=== PATIENT | female | born 1955 | race Caucasian/White ===

== ENCOUNTER 2017-07-09 15:51 | Emergency (ER) | payer BC ==
[2017-07-09 16:10] VITALS: BP 143/71; PULSE 81; RESP 16; TEMP 97.5
[2017-07-09] MEDS ORDERED: Acetaminophen-Codeine 300-30mg TAB PO STA (16:42)
--- NOTE | 2017-07-09 17:19 | XR ---
EXAMINATION TYPE: XR humerus RT DATE OF EXAM: 07/09/2017 CLINICAL HISTORY: Fall with pain TECHNIQUE: Two views of the right humerus are obtained. COMPARISON: None. FINDINGS: There is a fracture of the proximal aspect of the humerus which is difficult to precisely d elineate. It could be a fracture of the greater tuberosity. It is minimally displaced. No radiopaque foreign body is seen. IMPRESSION: Minimally displaced fracture of the proximal humerus difficult to precisely describe.
--- NOTE | 2017-07-09 17:37 | ED ---
General Adult HPI - General Chief complaint: Fall Stated complaint: right shoulder pain; left great toe pain Time Seen by Provider: 07/09/17 16:29 Source: patient, family, RN notes reviewed, old records reviewed Mode of arrival: wheelchair Limitations: no limitations - History of Present Illness Initial comments: Chief complaint history of present illness a 61-year-old female reports that she stumbled and fell outside a store. Landing on her right arm and shoulder area. Denies any head or neck injury or pain. Decreased range of motion secondary to pain to the right shoulder area. - Related Data Home Medications Medication Instructions Recorded Confirmed Etodolac [Lodine] 400 mg PO AC-SUPPER 07/09/17 07/09/17 Previous Rx's Medication Instructions Recorded Acetaminophen-Codeine 300-30mg 1 tab PO Q6H PRN #20 tablet 07/09/17 [Tylenol #3] Allergies Allergy/AdvReac Type Severity Reaction Status Date / Time Penicillins Allergy Rash/Hives Verified 07/09/17 16:34 morphine AdvReac Nausea & Verified 07/09/17 16:34 Vomiting Review of Systems ROS Statement: Those systems with pertinent positive or pertinent negative responses have been documented in the HPI. Review of systems no other complaints other than right shoulder pain. All systems are reviewed. Past medical problems significant for rheumatoid arthritis. Surgeries appendix and total hysterectomy. Family history cancers include breast stomach and colon. The patient does get routine colonoscopies. The patient has ALLERGIES to morphine and penicillin. She states she can't take Tylenol threes without problem. She does smoke she was strongly encouraged to stop. Denies alcohol use. ROS Other: All systems not noted in ROS Statement are negative. Past Medical History Past Medical History: Osteoarthritis (OA), Rheumatoid Arthritis (RA) History of Any Multi-Drug Resistant Organisms: None Reported Past Surgical History: Appendectomy, Hysterectomy Past Psychological History: No Psychological Hx Reported Smoking Status: Current every day smoker Past Alcohol Use History: None Reported Past Drug Use History: None Reported General Exam - General Exam Comments Initial Comments: General: The patient is awake and alert, complaining of pain right shoulder. Vital signs temperature 97.5 pulse 81 respiratory rate 16 pulse ox 95% room air blood pressure 143/71 Eye: Pupils are equal, round and reactive to light, extra-ocular movements are intact ; there is normal conjunctiva bilaterally. No signs of icterus. Ears, nose, mouth and throat: There are moist mucous membranes and no oral lesions. Neck: The neck is supple, there is no tenderness . Cardiovascular: There is a regular rate and rhythm. No murmur, rub or gallop is appreciated. Respiratory: Lungs are clear to auscultation, respirations are non-labored, breath sounds are equal. No wheezes, stridor, rales, or rhonchi. Gastrointestinal: Abdomen soft nontender. Back: There is no tenderness to palpation in the midline. There is no obvious deformity. No rashes noted. Musculoskeletal: All extremities examination normal except for pain and decreased range of motion to the right shoulder. Neurovascular status to hands intact. Able to open and close her fingers and right hand move her wrist pronate and supinate at the elbow. Difficulty comes with trying to both abduct or adduct active and passively to the proximal right shoulder. Collarbone intact. Neurological: No apparent neuro deficits. Limitations: no limitations Course Vital Signs 07/09/17 16:06 Temperature 97.5 F L Pulse Rate 81 Respiratory 16 Rate Blood Pressure 143/71 O2 Sat by Pulse 95 Oximetry Medical Decision Making - Medical Decision Making Medical decision making; to 61-year-old female here with . The patient reports that she was walking on a sidewalk outside a store stumbled and fell. Complaining of pain to the proximal right humerus. Patient denies any head or neck injury no other complaints. No loss of consciousness. X-ray of the right humerus was done and reviewed by radiologist his entire report includes there is a fracture of the proximal aspect of the humerus which is difficult to precisely delineate. He could be fracture of the greater tuberosity. It is minimally displaced. No radiopaque foreign body is seen. Impression minimally displaced fracture of the proximal humerus difficult to precisely describe. As read by Dr. Santiago Patient will have the arm placed in a sling to be placed on pain medication. She states she can take Tylenol threes without difficulty or complaints. She is to follow-up with family physician and on-call orthopedic surgeon [facility]. Disposition Clinical Impression: Fracture of proximal end of right humerus Disposition: HOME SELF-CARE Condition: Fair Instructions: Proximal Humerus Fracture (ED) Additional Instructions: Wear sling for comfort. Apply ice to area discomfort. Take Tylenol 3 for pain. Follow-up with family physician, your family orthopedic surgeon or he don 't have one follow-up with [facility]. Prescriptions: Acetaminophen-Codeine 300-30mg [Tylenol #3] 1 tab PO Q6H PRN #20 tablet PRN Reason: Pain Referrals: Isela Joseph MD [Primary Care Provider] - 1-2 days Cole Garces DO [Doctor of Osteopathic Medicine] - 1-2 days Time of Disposition: 17:37
== END 2017-07-09 17:52 | disposition home or self-care (01) ==
LOC: EC 15:51
DX: S42.401A Unspecified fracture of lower end of right humerus, initial encounter for closed fracture (principal); M06.9 Rheumatoid arthritis, unspecified; M19.90 Unspecified osteoarthritis, unspecified site; F17.200 Nicotine dependence, unspecified, uncomplicated; Z79.1 Long term (current) use of non-steroidal anti-inflammatories (NSAID); Z88.0 Allergy status to penicillin; Z88.5 Allergy status to narcotic agent; W01.0XXA Fall on same level from slipping, tripping and stumbling without subsequent striking against object, initial encounter; Y93.01 Activity, walking, marching and hiking; Y92.480 Sidewalk as the place of occurrence of the external cause
CPT/HCPCS: 99284

== ENCOUNTER → 2018-01-25 | Outpatient (CLI) | payer BC ==
--- NOTE | 2018-01-26 15:12 | MR ---
MR pelvis Left groin pain Multiplanar multisequence imaging through the pelvis. There is artifact present just superficial to the anterior abdominal wall in the left lower quadrant on all pulse sequences. There is no free fluid in the pelvis. Bone marrow signal is maintained. No evident hernia. No joint e ffusions. Sacroiliac joints are maintained. Uterus and adnexal structures are not seen with certainty . Urinary bladder is normal. IMPRESSION: Correlate for foreign body in the left lower quadrant, correlate for point tenderness. Pl ain film or CT scan may be of benefit. Postop changes.
== END | disposition home or self-care (01) ==
LOC: RADMRIMAIN 19:35
PROVIDERS: ATTEND Internal Medicine Rheumatology
DX: M54.16 Radiculopathy, lumbar region (principal); Z98.890 Other specified postprocedural states
CPT/HCPCS: 72195

== ENCOUNTER → 2018-02-06 | Outpatient (CLI) | payer BC ==
--- NOTE | 2018-02-06 07:57 | MR ---
EXAMINATION TYPE: MR lumbar spine wo con DATE OF EXAM: 02/06/2018 COMPARISON: MR pelvis dated 01/25/2019 HISTORY: Lumbar Radiculopathy TECHNIQUE: Multiplanar, multisequence images of the lumbar spine were acquired. FINDINGS: The lumbar spine vertebral bodies maintain normal vertebral body height and alignment. Ther e is multilevel disc desiccation seen. Conus medullaris is unremarkable terminating at T12-L1. Bone m arrow signal is within normal limits. L1-L2: Disc desiccation. No herniation, protrusion or disc bulging. No canal stenosis is present. F oramina are patent bilaterally. L2-L3: Disc desiccation. No herniation, protrusion or disc bulging. No canal stenosis is present. F oramina are patent bilaterally. L3-L4: There is a small broad-based disc bulge without focality. This creates very minimal bilateral neural foraminal narrowing. No spinal canal stenosis. L4-L5: There is a broad-based disc bulge, ligamentum flavum buckling and facet arthropathy resulting in minimal bilateral neuroforaminal narrowing. No spinal canal stenosis. L5-S1: There is a broad-based disc bulge without neural foraminal narrowing or spinal canal stenosis. IMPRESSION: 1. No evidence of vertebral body height loss or malalignment. 2. No focal disc herniation or spinal canal stenosis. 3. Mild multilevel degenerative disc disease resulting in minimal bilateral neural foraminal narrowin g at L3-L4 and L4-L5.
== END | disposition home or self-care (01) ==
LOC: RADMRIMAIN 06:45
PROVIDERS: ATTEND Internal Medicine Rheumatology
DX: M99.73 Connective tissue and disc stenosis of intervertebral foramina of lumbar region (principal); M51.36 Other intervertebral disc degeneration, lumbar region
CPT/HCPCS: 72148

== ENCOUNTER 2024-06-11 18:34 | Inpatient (IN) | payer BC ==
[2024-06-11] MEDS ORDERED: HEPARIN SODIUM 1,000 UN/ML (10ML VL) IV PRN (18:48)
[2024-06-11] MEDS: ASPIRIN 81 MG PO STA (18:50)
[2024-06-11] MEDS: ATORVASTATIN 80 MG TAB PO STA (18:51)
[2024-06-11] MEDS: methylPREDNISolone SOD SUCCI 125 MG/2 ML VIAL IV STA (18:51)
[2024-06-11] MEDS: HEPARIN SODIUM 1,000 UN/ML (10ML VL) IV ONE (18:53)
[2024-06-11] MEDS ORDERED: NALOXONE 0.4 MG/ML 1 ML VIAL IV PRN (18:55)
[2024-06-11] MEDS ORDERED: HEPARIN SOD,PORK IN 0.45% NACL 25,000 UNIT in 0.45% NACL 1 250ML.BAG IV SCH (19:00)
--- NOTE | 2024-06-11 19:01 | ED ---
General Adult HPI - General Chief complaint: Chest Pain Stated complaint: KARL Time Seen by Provider: 06/11/24 18:42 Source: EMS Mode of arrival: EMS Limitations: no limitations - History of Present Illness Initial comments: This patient is a 68-year-old woman who arrives by ambulance to have evaluation for dyspnea. The patient states that the symptoms started coming on last night. She has been getting progressively more short of breath. She states that it worsened markedly tonight and so they called EMS. The patient is not able to give much history due to severe dyspnea. She is having some associated nausea. Most of the history comes patient's . Patient has long smoking history. She is currently denying chest pain, diaphoresis, vomiting. Onset/Timin -: hour(s) Severity scale (1-10): 0 Consistency: constant Improves with: none Worsens with: none Associated Symptoms: nausea/vomiting, shortness of breath Treatments Prior to Arrival: other (Albuterol) - Related Data Home Medications Medication Instructions Recorded Confirmed Etodolac [Lodine] 400 mg PO BID PRN 07/09/17 06/11/24 Albuterol Nebulized [Ventolin 2.5 mg INHALATION RT-QID PRN 06/11/24 06/11/24 Nebulized] Allergies Allergy/AdvReac Type Severity Reaction Status Date / Time Iodinated Contrast Media Allergy Unknown Verified 06/11/24 18:59 Penicillins Allergy Rash/Hives Verified 06/11/24 18:48 morphine AdvReac Nausea & Verified 06/11/24 18:48 Vomiting Review of Systems ROS Statement: Those systems with pertinent positive or pertinent negative responses have been documented in the HPI. ROS Other: All systems not noted in ROS Statement are negative. Constitutional: Denies: fever Respiratory: Reports: dyspnea. Denies: cough, hemoptysis Cardiovascular: Reports: orthopnea. Denies: chest pain, palpitations, edema, syncope Gastrointestinal: Reports: nausea. Denies: abdominal pain, vomiting, diarrhea, melena, hematochezia Genitourinary: Denies: dysuria, hematuria Musculoskeletal: Denies: back pain Skin: Denies: rash Neurological: Denies: headache, weakness Past Medical History Past Medical History: Osteoarthritis (OA), Rheumatoid Arthritis (RA) History of Any Multi-Drug Resistant Organisms: None Reported Past Surgical History: Appendectomy, Hysterectomy Past Psychological History: No Psychological Hx Reported Smoking Status: Current every day smoker Past Alcohol Use History: None Reported Past Drug Use History: None Reported General Exam Limitations: no limitations General appearance: alert, in no apparent distress Head exam: Present: atraumatic, normocephalic Eye exam: Present: normal appearance. Absent: scleral icterus, conjunctival injection ENT exam: Present: mucous membranes dry Neck exam: Present: normal inspection Respiratory exam: Present: respiratory distress, wheezes. Absent: rales, rhonc hi, stridor, accessory muscle use Cardiovascular Exam: Present: regular rate, tachycardia, systolic murmur. Absent: diastolic murmur, rubs, gallop GI/Abdominal exam: Present: soft. Absent: distended, tenderness, guarding, rebound, rigid, mass Extremities exam: Present: normal inspection, normal capillary refill. Absent: pedal edema, calf tenderness Back exam: Present: normal inspection. Absent: CVA tenderness (R), CVA tenderness (L) Neurological exam: Present: alert Psychiatric exam: Present: anxious Skin exam: Present: warm, dry, intact, mottled. Absent: rash Course Vital Signs 06/11/24 06/11/24 06/11/24 18:44 18:54 19:00 Temperature 97.1 F L Pulse Rate 129 H 121 H 122 H Respiratory 20 20 30 H Rate Blood Pressure 128/89 102/73 O2 Sat by Pulse 99 98 Oximetry 06/11/24 19:12 Temperature Pulse Rate 119 H Respiratory 26 H Rate Blood Pressure 123/97 O2 Sat by Pulse 96 Oximetry EKG Findings - EKG Results: EKG: interpreted by ERMD, sinus rhythm EKG shows: tachycardia (Rate 129 bpm) - Blocks, [place], Hypertrophy, ST Abn: AV and intraventricular conduction: right bundle branch block (fi xed/intermittent, complete/incomplete) - PA, Pacemaker, Normal: Myocardial infarction: anterior PA (acute or recent) Medical Decision Making - Medical Decision Making The patient had chest x-ray that I interpreted as negative for acute infiltrate, pneumothorax, congestive heart failure. COPD changes present. Patient is a 68-year-old woman brought by ambulance to have evaluation of severe dyspnea. History from the patient is somewhat limited due to severe dyspnea. She is able to answer with just a couple of words. Her partner did give much of the history. The ECG is obtained and there are ST elevations and Glue Maker was activated. Case discussed with cardiology and they took the patient for heart catheterization. Was pt. sent in by a medical professional or institution (MALLORY Torrez, LEVEL VIAL INSPECTOR AND TESTER, urgent care, hospital, or assisted...) When possible be specific @ -[No] Did you speak to anyone other than the patient for history (EMS, parent, family, police, friend...)? What history was obtained from this source @ -[The patient's partner did give history as well as EMS. Did you review nursing and triage notes (agree or disagree)? Why? @ -[I reviewed and agree with nursing and triage notes] Were old charts reviewed (outside hosp., previous admission, EMS record, old EKG, old radiological studies, urgent care reports/EKG's, assisted records)? Report findings @ -[No old charts were reviewed] Differential Diagnosis (chest pain, altered mental status, abdominal pain women, abdominal pain men, vaginal bleeding, weakness, fever, dyspnea, syncope, headache, dizziness, GI bleed, back pain, seizure, CVA, palpatations, mental health, musculoskeletal)? @ -[Differential Dyspnea: Coronary syndrome, arrhythmia, tamponade, asthma, COPD, pulmonary embolism, pneumonia, pneumothorax, pulmonary effusion, anaphylaxis, diabetic ketoacidosis, flailed chest, pulmonary contusion, diaphragmatic rupture, anemia, neuromuscular, this is not meant to be an all-inclusive list. EKG interpreted by me (3pts min.). @ -[I interpreted as above] X-rays interpreted by me (1pt min.). @ -[I interpreted as above CT interpreted by me (1pt min.). @ -[None done] U/S interpreted by me (1pt. min.). @ -[None done] What testing was considered but not performed or refused? (CT, X-rays, U/S, labs)? Why? @ -[None] What meds were considered but not given or refused? Why? @ -[None] Did you discuss the management of the patient with other professionals (professionals i.e. MALLORY Torrez, LEVEL VIAL INSPECTOR AND TESTER, lab, RT, psych nurse, neonatal social worker, color laboratory technician, teacher, traffic division commanding officer, lining caser)? Give summary @ -[I discussed the patient's case with on-call cardiology and with the admitting physician and treatment recommendations are incorporated Was smoking cessation discussed for >3mins.? @ -[No] Was critical care preformed (if so, how long)? @ -[Yes, 35 minutes Were there social determinants of health that impacted care today? How? (Homelessness, low income, unemployed, alcoholism, drug addiction, transportation, low edu. Level, literacy, decrease access to med. care, [facility], rehab)? @ -[No] Was there de-escalation of care discussed even if they declined (Discuss DNR or withdrawal of care, Hospice)? DNR status @ -[No] What co-morbidities impacted this encounter? (DM, HTN, Smoking, COPD, CAD, Cancer, CVA, ARF, Chemo, Hep., AIDS, mental health diagnosis, sleep apnea, morbid obesity)? @ -Smoking Was patient admitted / discharged? Hospital course, mention meds given and route, prescriptions, significant lab abnormalities, going to OR and other pertinent info. @ -[See above Undiagnosed new problem with uncertain prognosis? @ -[No] Drug Therapy requiring intensive monitoring for toxicity (Heparin, Nitro, Insulin, Cardizem)? @ -[Heparin Were any procedures done? @ -[No] Diagnosis/symptom? @ -[Acute STEMI Acute, or Chronic, or Acute on Chronic? @ -[Acute Uncomplicated (without systemic symptoms) or Complicated (systemic symptoms)? @ -[Complicated by dyspnea Side effects of treatment? @ -[No] Exacerbation, Progression, or Severe Exacerbation? @ -[No] Poses a threat to life or bodily function? How? (Chest pain, [place], PA, pneumonia, PE, COPD, DKA, ARF, appy, cholecystitis, CVA, Diverticulitis, Homicidal, Suicidal, threat to staff... and all critical care pts) @ -[Yes All treatments are based on ideal body weight as in ED triage - Lab Data Result diagrams: 06/13/24 08:50 06/13/24 06:40 Disposition Clinical Impression: STEMI (ST elevation myocardial infarction) Disposition: ADMITTED IP TO THIS HOSP Condition: Critical Is patient prescribed a controlled substance at d/c from ED?: No
[2024-06-11 19:17] LABS: Basophils % (A) 0 %; Eosinophils % (A) 0 %; HCT 54.5 % (34.0-46.0); Lymphocytes # (A) 0.7 k/uL (1.0-4.8); Lymphocytes % (A) 6 %; MCH 31.8 pg (25.0-35.0); MCV 96.3 fL (80.0-100.0); Mean Platelet Volume 7.8; Monocytes % (A) 8 %; Neutrophils # (A) 11.4 k/uL (1.3-7.7); Neutrophils % (A) 86 %; Platelet Count 203 k/uL (150-450); RBC 5.66 m/uL (3.80-5.40); RDW 13.2 % (11.5-15.5); WBC 13.3 k/uL (3.8-10.6)
[2024-06-11] MEDS: SODIUM CHLORIDE 0.9% 1,000 ML IV ONE (19:19)
[2024-06-11 19:24] LABS: African American GFR (CKD) 36 (>60 ml/min/1.73 sqM); Albumin 5.2 g/dL (3.5-5.0); Anion Gap 21 mmol/L; Blood Urea Nitrogen 46 mg/dL (7-17); Calcium 9.9 mg/dL (8.4-10.2); Carbon Dioxide 20 mmol/L (22-30); Chloride 90 mmol/L (98-107); Glucose 216 mg/dL (74-99); Non-African American GFR(CKD) 31 (>60 ml/min/1.73 sqM); Sodium 131 mmol/L (137-145); Total Bilirubin 1.7 mg/dL (0.2-1.3); Total Protein 8.2 g/dL (6.3-8.2)
[2024-06-11 19:30] LABS: ALT 170 U/L (4-34)
--- NOTE | 2024-06-11 19:31 | P.CRDCN ---
History of Present Illness Consult date: 06/11/24 History of present illness: History of Present Illness: The patient is a 68-year-old female with known history of COPD, chronic tobacco use, 1 pack a day who on the weekend had symptoms of nausea vomiting and some diarrhea but starting yesterday became quite dyspneic getting worse today. Came into the emergency room and her EKG shows sinus mechanism with ST segment e levation in V3-V6. The patient has no associated chest discomfort. She has no prior cardiac history. She denies any peripheral edema, dizziness or palpitations. She is quite dyspneic and has a cough. She denies any fever. She denies any history of diabetes, hypertension or documented hyperlipidemia. Medications: Albuterol Review of Systems: Respiratory: She has a history of chronic tobacco use and chronic obstructive lung disease GI: She had recent episode of diarrhea and nausea : No hematuria or dysuria. Nervous System: No stroke or seizure. Physical Examination: 68-year-old female, appears older than stated age, dyspneic,Blood pressure 123/97, Heart rate 110 Head: Normocephalic. Eyes: Sclerae nonicteric. Neck: Good carotid upstroke, no bruit, no jugular venous distention. Lungs: Severe decrease in the air exchange with scattered wheezes Heart: Regular rate and rhythm, S1-S2, no S3, no rub. No murmur. Abdomen: Soft nontender, positive bowel sounds no organomegaly. Extremities: No edema, intact distal pulses. Labs: Hemoglobin of 18, WBC 13.3, platelets 203 EKG: Sinus mechanism with sinus tachycardia, right bundle branch block and ST segment elevation in V3 through V6 consistent with lateral wall myocardial infarction Impression: 1. Acute dyspnea with evidence of EKG changes consistent with acute ST segment elevation myocardial infarction 2. Probable exacerbation of COPD 3. Chronic tobacco use 4. Episode of diarrhea and nausea and vomiting on the weekend could be viral infection Plan: 1. Proceed with coronary angiography, the risks and the complications were discussed with the patient and her , they are in full understanding and agreement 2. Obtain an echocardiogram with Doppler 3. Smoking cessation 4. Pulmonary consultation 5. Depending on the results of her testing further recommendations will be made, thank you for this consult we will follow with you. Past Medical History Past Medical History: Osteoarthritis (OA), Rheumatoid Arthritis (RA) History of Any Multi-Drug Resistant Organisms: None Reported Past Surgical History: Appendectomy, Hysterectomy Past Psychological History: No Psychological Hx Reported Smoking Status: Current every day smoker Past Alcohol Use History: None Reported Past Drug Use History: None Reported Medications and Allergies Home Medications Medication Instructions Recorded Confirmed Type Etodolac [Lodine] 400 mg PO BID PRN 07/09/17 06/11/24 History Albuterol Nebulized [Ventolin 2.5 mg INHALATION RT-QID PRN 06/11/24 06/11/24 History Nebulized] Allergies Allergy/AdvReac Type Severity Reaction Status Date / Time Iodinated Contrast Media Allergy Unknown Verified 06/11/24 18:59 Penicillins Allergy Rash/Hives Verified 06/11/24 18:48 morphine AdvReac Nausea & Verified 06/11/24 18:48 Vomiting Physical Exam Vitals: Vital Signs Temp Pulse Resp BP Pulse Ox 06/11/24 19:12 119 H 26 H 123/97 96 06/11/24 19:00 122 H 30 H 102/73 98 06/11/24 18:54 121 H 20 128/89 99 06/11/24 18:44 97.1 F L 129 H 20 Intake and Output 06/11/24 06/11/24 06/11/24 06:59 14:59 22:59 Other: Weight 49.895 kg Results 06/11/24 18:57 CBC 06/11/24 Range/Units 18:57 WBC 13.3 H (3.8-10.6) k/uL RBC 5.66 H (3.80-5.40) m/uL Hgb 18.0 H (11.4-16.0) gm/dL Hct 54.5 H (34.0-46.0) % Plt Count 203 (150-450) k/uL Current Medications Generic Name Dose Route Start Last Admin Trade Name Freq PRN Reason Stop Dose Admin Heparin Sodium (Porcine) 0 unit 06/11/24 18:48 Heparin Sodium 1,000 Un/Ml (10ml Vl) IV PER PROTOCOL PRN Low PTT Protocol Heparin Sodium/Sodium Chloride 250 mls @ 5.987 mls/hr 06/11/24 19:00 25,000 unit/ Sodium Chloride IV .Q24H LJ Protocol 12 UNITS/KG/HR Naloxone HCl 0.2 mg 06/11/24 18:55 Naloxone 0.4 Mg/Ml 1 Ml Vial IV Q2M PRN Opioid Reversal Intake and Output 06/11/24 06/11/24 06/11/24 06:59 14:59 22:59 Other: Weight 49.895 kg Patient Weight 06/12/24 06:59 Weight 49.895 kg 06/11/24 18:57
[2024-06-11] MEDS: fentaNYL (PF) 50 MCG/ML 2 ML AMP IVP ONE (19:33)
[2024-06-11 19:37] LABS: AST 552 U/L (14-36); Alkaline Phosphatase 94 U/L (38-126); Magnesium 2.4 mg/dL (1.6-2.3); Potassium 5.6 mmol/L (3.5-5.1)
[2024-06-11] MEDS: LIDOCAINE 1% INJ 10MG/ML (20 ML MDV) SQ ONE (19:37)
[2024-06-11] MEDS: VERAPAMIL SYRINGE (5 MG/10 ML) INTRAARTER ONE (19:39)
[2024-06-11] MEDS: HEPARIN SODIUM 1,000 UN/ML (10ML VL) IVP ONE (19:42)
[2024-06-11 19:52] LABS: Influenza A Not Detected (Not Detectd); Influenza B Not Detected (Not Detectd); RSV Not Detected (Not Detectd)
[2024-06-11] MEDS: PRASUGREL 10 MG TAB PO ONE (19:54)
[2024-06-11] MEDS: IOPAMIDOL-370 100ML BTL INJ ONE ×3 (19:55→20:47)
--- NOTE | 2024-06-11 20:00 | XR ---
EXAMINATION TYPE: XR chest 1V DATE OF EXAM: 06/11/2024 7:01 PM COMPARISON: None. CLINICAL INDICATION: Female, 68 years old with history of STEMI, TECHNIQUE: XR chest 1V view(s) obtained. FINDINGS: The heart size is normal. The pulmonary vasculature is prominent. Small bilateral pleural effusions are present. IMPRESSION: 1. Small bilateral pleural effusions. 2. Prominent pulmonary vascular markings [facility], , 06/11/2024 7:58 PM
[2024-06-11 20:12] LABS: NT-Pro-B-Type Natriuretic Pept 59800 pg/mL
[2024-06-11] MEDS: HEPARIN SODIUM,PORCINE 10,000 UNIT in SODIUM CHLORIDE 0.9% 1,000 ML IRRIGATION ONE (20:19)
[2024-06-11] MEDS: HEPARIN SODIUM,PORCINE (1 ML) 2,500 UNIT in SODIUM CHLORIDE 0.9% 250 ML IRRIGATION ONE (20:19)
[2024-06-11] MEDS: MIDAZOLAM 2 MG/2 ML VIAL IVP ONE (20:19)
[2024-06-11] MEDS ORDERED: RX INFO: IV CONTRAST WAS GIVEN 1 EACH MISC MISCELLANE PRN (20:59)
--- NOTE | 2024-06-11 21:17 | P.CARDCATH ---
Date of Procedure: 06/11/24 Description of Procedure: Cardiac Catheterization: The patient is a 68-year-old female with known history of chronic tobacco use who presented with severe progressive dyspnea for few days and in the ER was noted to have ST elevation in the lateral precordial leads. The patient had no chest discomfort. Recommendations were made regarding cardiac catheterization, the risks and the complications were discussed with the patient who is in full understanding and agreement. After starting cardiac catheterization she was found to have evidence of chronic kidney disease in addition to significant elevation to her NT proBNP. Procedure Description: Patient was brought to laboratory equipment cleaner in fasting semi-sedated state after receiving Fentanyl and Benadryl achieiving moderate conscious sedated state. Using Xylocaine Anesthesia and modified Seldinger technique, a 6-Comoran sheath was introduced in the right radial artery . Subsequently, selective coronary angiography was performed using a 5-Comoran 3.5 bend right Hua and 6 Comoran CLS 3.5 guiding catheter. Multiple views of the coronary artery including hemiaxial views were obtained. The 5 [place]an pigtail catheter was used to cross the aortic valve and LVEDP was calculated. PCI: Using the CLS 3.5 guiding catheter attempt to advance a 0.014 BMW J-wire were unsuccessful to cross the total occlusion, that wire was removed and a whisper J-wire with a super cross catheter were used to cross the lesion subsequently the wire and the super cross were removed and a 0.014 BMW J-wire was advanced and appears to be in the lumen. A 1.0 x 8 mm sapphire balloon was advanced and multiple inflation up to 12 konrad were done but no distal flow was noted suggestive of chronic occlusion with inability to restore the flow. At that point the decision was made to stop. Following that, catheter and sheath were removed. Hemostasis was obtained with deployment of vascular band . There was no immediate complication. Patient was returned to room in stable condition. Of note, the patient received a total of 3000 units of intravenous heparin as well as intra-arterial verapamil. She is very received an oral loading dose of Effient, her ACT was monitored. She felt her breathing was better at the end of the procedure, she had no chest discomfort. Findings: Fluoroscopy: Calcification of the LAD was noted. Left main: This is a large size vessel, bifurcating into LAD and left circumflex, left main has no high grade stenosis LAD: This vessel gives rise to a proximal diagonal branch and after that the vessel is totally occluded with no antegrade flow Left circumflex: This is a large size vessel, bifurcating into 2 obtuse marginal branch. The proximal left circumflex has 80 to 90% stenosis and there is another 80% stenosis after the takeoff of the first obtuse marginal branch RCA: This is a dominant vessel that is subtotally occluded in the proximal segme nt. The vessel after the occlusion is very small in caliber, of less than 1 mm in caliber, bifurcating distally to PDA and PLV. Faint collateral from the left system toward the PDA is noted. Left Ventriculogram: Not performed Hemodynamics: There was no gradient across aortic valve, LVEDP was 20-25 mmHg Conclusion: 1. Calcified LAD 2. Total occlusion of the mid LAD 3. Severe stenosis in the left circumflex, proximal and mid 4. Subtotal occlusion of the proximal RCA with diffuse intimal disease in the distal vessel 5. Inability to restore flow into the LAD and spite of advancing a wire and PTCA, could represent a more chronic occlusion. Recommendations: The patient will continue on aspirin and Plavix, she will be started on low-dose beta-roney and statin, attempting to maintain LDL below 70 mg/dL. Smoking cessation was discussed with her and she will be referred to [place] quit line. She will be evaluated by the pulmonary service in regard to her severe lung disease. Depending on her progress and her echocardiogram further recommendations will be made. The findings and the recommendations were discussed with the patient and the family and they were in full understanding and agreement. The prognosis is guarded. Duration of sedation is 120 minutes.
[2024-06-11 21:18] LABS: Glucose,Whole Blood 148 mg/dL (70-110)
[2024-06-11] MEDS: SODIUM CHLORIDE 0.9% 1,000 ML IV SCH (21:34)
[2024-06-11] MEDS: ONDANSETRON 4 MG/2 ML VIAL IVP STA (21:36)
[2024-06-11] MEDS ORDERED: IPRATROPIUM-ALBUTEROL 3 ML NEB INHALATION PRN (22:33)
--- NOTE | 2024-06-11 23:12 | P.HPIM ---
History of Present Illness H&P Date: 06/11/24 Patient is a seen 8-year-old female with COPD, osteoarthritis, rheumatoid arthritis here for shortness of breath. She reported that on 06/09 she started to be short of breath that was nonpleuritic and constant despite using her albuterol inhaler and persisted at rest. She had associated sweats, nausea, multiple episodes of nonbloody nonbilious vomiting, urinary frequency and nonbloody nonbilious diarrhea. Yesterday 06/10, she noted that her shortness of breath became worse which led her to seek care. She denied cough, sore throat, fever, leg pain, leg swelling, recent travel, chest pain, palpitations, abdominal pain, loss of vision, changes in speech, focal weakness. She denies any recent illness or hospitalizations. She is an active smoker with a [id number] history. She is trying to quit but is having a hard time due to smoking exposure at home. She also smokes marijuana and takes edibles. On admission, chest x-ray showed small bilateral pleural effusions, with prominent pulmonary vascular markings. EKG showed sinus rhythm with a rate of [address] elevations in leads V1 to V6. Labs on admission showed WBC 13.3, hemoglobin 18, MCV 96, platelet count 202,000, sodium 131, potassium 5.6, chloride 90, bicarb 20, BUN 46, creatinine 1.7, glucose 216, magnesium 2.4, calcium 9.9. AST elevated at 552, ALT elevated at 170, total bilirubin 1.7 which is elevated, alk phos normal at 94, albumin 5.2. proBNP 59,900. Cepheid 4 negative Vitals on admission temperature 97.1, pulse rate 129, respiratory rate 20, blood pressure 128/89, O2 saturation 98% on 4 L nasal cannula ED documentation reviewed and case discussed with ED provider. Code STEMI was called and patient presented to [facility]. Heparin drip, Solu-Medrol IV 125 mg, aspirin high-dose p.o., and Lipitor 80 mg initiated. Review of systems: Pertinent positives and negatives as discussed in HPI, a complete review of systems was performed and all other systems are negative. Physical examination: Vital signs reviewed General: toxic, no distress, appears at older than stated age, on 3 L nasal cannula Derm: no unusual rashes/lesions, warm Head: atraumatic, normocephalic, symmetric Eyes: EOMI, anicteric sclera, pupils equal round reactive to light ENT: Nose and ears atraumatic Neck: No cervical lymphadenopathy, trachea midline, supple Mouth: no lip lesion, mucus membranes moist Cardiovascular: S1S2 reg, no murmur Lungs: Diffuse expiratory and inspiratory wheezing, no rhonchi, no rales, no accessory muscle use Abdominal: soft, nondistended, nontender to palpation, no guarding Ext: muscle strength 5 out of 5 in all 4 extremities grossly, no gross muscle atrophy, no contractures, positive dorsalis pedis pulse bilateral, no edema Neuro: CN II-XI grossly intact, no gross focal neuro deficits Psych: Alert and oriented x 3, appropriate affect and mood Assessment/Plan: 68-year-old female with COPD but no cardiac history here for shortness of breath. EKG was found to have STEMI in leads V1 to V6. She has COPD and is an active smoker and having difficulty quitting due smoking exposure at home. #. ST elevation HI status post cardiac catheterization -EKG showed sinus rhythm with a rate of [address] elevations in leads V1 to V6 -Cardiac monitoring -Supplemental oxygen as needed -Heart healthy diet -Trend troponin -EKG as needed -Echocardiogram -Continue with IV heparin -Continue with clopidogrel 75 mg p.o. daily -Nitroglycerin prn for chest pain. 0.4 mg PO or Nitrobid topical -Given aspirin 325 mg once in the ED -Continue with aspirin 81 mg daily -Continue lipitor 80 mg daily -Metoprolol tartarate 12.5mg PO twice daily -Cardiology following #. Shortness of breath, COPD exacerbation versus new onset heart failure -Patient is a long smoking history and is an active smoker. Has diffuse expiratory and inspiratory wheezing -Chest x-ray small bilateral pleural effusions and prominent pulmonary vascular markings -proBNP 59,800 -Sodium 131 -Supplemental oxygen as needed -DuoNeb inhaler every 4 hours and as needed -Symbicort inhaler twice daily -IV Solu-Medrol 40 mg daily -Echocardiogram -Repeat BMP tomorrow -Advised smoking cessation -Consult pulmonology -Cardiology following #. Leukocytosis likely reactive #. Elevated hemoglobin and hematocrit due to chronic hypoxia -WBC 13.3. Patient afebrile -Hemoglobin 18. Patient active smoker -Monitor CBC #. Transaminitis likely due to congestive hepatopathy -Total bilirubin 1.7 AST 0.52. ALT 170 -Monitor liver enzymes #. Acute kidney injury -BUN 46. Creatinine 1.7 -Continue with IVF 0.9 normal saline at 75 mL/h -Repeat BMP #. Hyperkalemia -Potassium 5.6. Specimen hemolyzed -Repeat BMP tomorrow #. Hypomagnesemia -Magnesium 2.4 -Recheck magnesium levels #. Hyperglycemia -Glucose 216 -History of diabetes -Check A1c -POC glucose checks ACHS Chronic Conditions: F: 0.9 normal saline 75 cc per E: Monitor sodium, potassium and magnesium N: Heart healthy diet A: Can self ambulate DVT ppx: Heparin drip GI ppx: Protonix 40 mg p.o. daily Dispo: The patient is admitted with an anticipated greater than 2 midnight stay for evaluation of STEMI CODE STATUS: Full Discussed with: Patient and family Anticipated discharge place: Home Sakina Moise MD PGY-1 IM Dictation was produced using [employer] dictation software. please excuse any grammatical, word or spelling errors. I have seen and evaluated the patient today. I Discussed the case with the resident and agree with the resident's findings I edited the assessment and plan as necessary as documented in the resident's note. Past Medical History Past Medical History: Osteoarthritis (OA), Rheumatoid Arthritis (RA) History of Any Multi-Drug Resistant Organisms: None Reported Past Surgical History: Appendectomy, Hysterectomy Past Psychological History: No Psychological Hx Reported Smoking Status: Current every day smoker Past Alcohol Use History: None Reported Past Drug Use History: None Reported Medications and Allergies Home Medications Medication Instructions Recorded Confirmed Type Etodolac [Lodine] 400 mg PO BID PRN 07/09/17 06/11/24 History Albuterol Nebulized [Ventolin 2.5 mg INHALATION RT-QID PRN 06/11/24 06/11/24 Hi story Nebulized] Allergies Allergy/AdvReac Type Severity Reaction Status Date / Time Iodinated Contrast Media Allergy Unknown Verified 06/11/24 18:59 Penicillins Allergy Rash/Hives Verified 06/11/24 18:48 morphine AdvReac Nausea & Verified 06/11/24 18:48 Vomiting Physical Exam Vitals: Vital Signs Temp Pulse Resp BP Pulse Ox 06/11/24 19:12 119 H 26 H 123/97 96 06/11/24 19:00 122 H 30 H 102/73 98 06/11/24 18:54 121 H 20 128/89 99 06/11/24 18:44 97.1 F L 129 H 20 Intake and Output 06/11/24 06/11/24 06/11/24 06:59 14:59 22:59 Other: Weight 49.895 kg Results CBC & Chem 7: 06/12/24 05:49 06/12/24 05:49 Labs: Abnormal Lab Results - Last 24 Hours (Table) 06/11/24 Range/Units 18:57 WBC 13.3 H (3.8-10.6) k/uL RBC 5.66 H (3.80-5.40) m/uL Hgb 18.0 H (11.4-16.0) gm/dL Hct 54.5 H (34.0-46.0) % Neutrophils # 11.4 H (1.3-7.7) k/uL Lymphocytes # 0.7 L (1.0-4.8) k/uL
[2024-06-11] MEDS: NITROGLYCERIN OINT 1 INCH/GM PACKET TOPICAL SCH (23:18)
[2024-06-11] MEDS: HEPARIN SOD,PORK IN 0.45% NACL 25,000 UNIT in 0.45% NACL 1 250ML.BAG IV SCH (23:18)
[2024-06-11] MEDS: FUROSEMIDE 10 MG/ML 2 ML VIAL IV STA (23:40)
[2024-06-11 23:50] LABS: Basophils % (A) 0 %; Eosinophils % (A) 0 %; HCT 50.6 % (34.0-46.0); HGB 16.3 gm/dL (11.4-16.0); Lymphocytes # (A) 0.5 k/uL (1.0-4.8); Lymphocytes % (A) 4 %; MCH 31.3 pg (25.0-35.0); MCHC 32.3 g/dL (31.0-37.0); MCV 96.8 fL (80.0-100.0); Mean Platelet Volume 7.3; Monocytes # (A) 0.7 k/uL (0-1.0); Monocytes % (A) 5 %; Neutrophils # (A) 13.4 k/uL (1.3-7.7); Neutrophils % (A) 91 %; Platelet Count 192 k/uL (150-450); RBC 5.23 m/uL (3.80-5.40); RDW 13.2 % (11.5-15.5); WBC 14.7 k/uL (3.8-10.6)
[2024-06-11 23:59] LABS: African American GFR (CKD) 36 (>60 ml/min/1.73 sqM); Anion Gap 16 mmol/L; Blood Urea Nitrogen 47 mg/dL (7-17); Calcium 9.4 mg/dL (8.4-10.2); Carbon Dioxide 25 mmol/L (22-30); Chloride 89 mmol/L (98-107); Glucose 175 mg/dL (74-99); INR 1.3 (<1.2); Non-African American GFR(CKD) 31 (>60 ml/min/1.73 sqM); Partial Thromboplastin Time 24.7 sec (22.0-30.0); Potassium 4.7 mmol/L (3.5-5.1); Prothrombin Time 13.7 sec (10.0-12.5); Sodium 130 mmol/L (137-145)
[2024-06-12] MEDS: FUROSEMIDE 10 MG/ML 2 ML VIAL IV ONE (00:31)
[2024-06-12] MEDS: fentaNYL (PF) 50 MCG/ML 2 ML AMP IVP STA (00:31)
--- NOTE | 2024-06-12 05:09 | P.CNPUL ---
History of Present Illness Consult date: 06/12/24 Requesting physician: Higinio Martinez Reason for consult: COPD Chief complaint: Shortness of breath History of present illness: Patient is 68-year-old female with past medical history significant for COPD and chronic ongoing tobacco dependence. Presented to the emergency department yesterday evening with a chief complaint of progressively worsening shortness of breath over the last 24-48 hours. Worsening overnight. Denies any overt chest pain. Denies any lower extremity edema. Associated nausea without emesis. No diaphoresis. EKG showing ST segment elevations in anterior leads. Patient was taken to the catheterization lab which noted a totally occluded mid LAD, severe stenosis of the left circumflex, and subtotal occlusion of the proximal RCA. Interventional cardiology unable to restore patency to the LAD. Following the heart catheterization, patient was sent to the intensive care unit. Continues to report severe ongoing shortness of breath. Chest x-ray from last night sh owing cardiomegaly, pulmonary vascular congestion, and small bilateral pleural effusions. Hyperinflation consistent with COPD. CBC: WBC count 14.7, hemoglobin 16.3, platelets 192. CMP: Sodium 130, potassium 4.7, chloride 89, serum bicarb 25, BUN 47, creatinine 1.69, glucose 175. NT proBNP 59,800. Troponin is peaked at 98. Viral screen unremarkable for influenza, RSV, COVID. Patient currently being evaluated in the ICU. Continues on IV heparin infusion per protocol. Normal sinus infusing at 75 mL/h. Patient denies any chest pain. Continues to report ongoing shortness of breath. A pulmonary consult was placed for COPD exacerbation. She is sitting erect in bed. On 4 L/min nasal ca nnula. SpO2 reading 97%. She is tachypneic. Does reportedly have history of COPD. Smokes 1 pack/day. Denies infectious-like symptoms. Denies coughing, sputum production, fever/chills. Did have few episodes of self-limiting loose stools outpatient. No her dyspnea more likely related to her pulmonary edema and ST segment elevation [place]. She has been started on Lasix 40 mg twice daily. Also, started on dual antiplatelet medications including aspirin and Plavix. Started on a low-dose beta-roney and high intensity statin. Most recent vital signs afebrile, heart rate 102 bpm, blood pressure 123/67 mmHg, respiratory rate in the mid 20s, SpO2 97% on 4 L/min nasal cannula. Review of Systems Constitutional: Reports fatigue, Denies chills, Denies fever, Denies poor appetite, Denies sweats, Denies weight gain, Denies weight loss Ears, nose, mouth and throat: Denies headache, Denies sore throat Cardiovascular: Reports dyspnea on exertion, Reports orthopnea, Reports shortness of breath, Denies chest pain, Denies leg edema, Denies lightheadedness, Denies palpitations, Denies paroxysmal nocturnal dyspnea, Denies syncope Respiratory: Reports dyspnea, Denies congestion, Denies cough, Denies excessive sputum, Denies home oxygen Gastrointestinal: Reports diarrhea, Denies abdominal pain, Denies hematemesis, Denies hematochezia, Denies melena, Denies nausea, Denies vomiting Genitourinary: Denies dysuria Musculoskeletal: Denies limitation of motion Integumentary: Denies rash Neurological: Denies seizures, Denies syncope Psychiatric: Denies anxiety, Denies depression Past Medical History Past Medical History: Osteoarthritis (OA), Rheumatoid Arthritis (RA) History of Any Multi-Drug Resistant Organisms: None Reported Past Surgical History: Appendectomy, Hysterectomy Past Psychological History: No Psychological Hx Reported Smoking Status: Current every day smoker Past Alcohol Use History: None Reported Past Drug Use History: None Reported Medications and Allergies Home Medications Medication Instructions Recorded Confirmed Type Etodolac [Lodine] 400 mg PO BID PRN 07/09/17 06/11/24 History Albuterol Nebulized [Ventolin 2.5 mg INHALATION RT-QID PRN 06/11/24 06/11/24 History Nebulized] Allergies Allergy/AdvReac Type Severity Reaction Status Date / Time Iodinated Contrast Media Allergy Unknown Verified 06/11/24 18:59 Penicillins Allergy Rash/Hives Verified 06/11/24 18:48 morphine AdvReac Nausea & Verified 06/11/24 18:48 Vomiting Physical Exam Vitals: Vital Signs Temp Pulse Resp BP Pulse Ox 06/12/24 01:00 102 H 22 123/67 97 06/12/24 00:30 107 H 22 100/47 97 06/12/24 00:00 105 H 28 H 114/75 97 06/11/24 23:30 111 H 22 122/50 97 06/11/24 23:06 109 H 18 122/50 95 06/11/24 23:00 109 H 30 H 107/67 95 06/11/24 22:45 113 H 20 116/80 97 06/11/24 22:30 28 H 113/92 96 06/11/24 22:15 123 H 22 107/86 96 06/11/24 22:00 112 H 20 122/44 96 06/11/24 21:45 121 H 20 118/97 96 06/11/24 21:30 122 H 24 122/86 96 06/11/24 19:12 119 H 26 H 123/97 96 06/11/24 19:00 122 H 30 H 102/73 98 06/11/24 18:54 121 H 20 128/89 99 06/11/24 18:44 97.1 F L 129 H 20 Intake and Output 06/11/24 06/11/24 06/12/24 14:59 22:59 06:59 Intake Total 425 150 Output Total 0 200 Balance 425 -50 Intake: IV 425 150 Sodium Chloride 0.9% 1, 75 150 000 ml @ 75 mls/hr IV . [id number] Rx#:[id number] Output: Urine 0 200 Other: Voiding Method External Catheter # Voids 1 Weight 49.895 kg GENERAL EXAM: Alert, 68-year-old white female, sitting erect in bed, on 4 L/min nasal cannula, and a mild amount of respiratory distress HEAD: Normocephalic and atraumatic EYES: Normal reaction of pupils, equal size. NOSE: Clear with pink turbinates. THROAT: No erythema or exudates. NECK: No masses, no JVD. CHEST: No chest wall deformity. LUNGS: Equal air entry with diminished bilateral lung sounds. Faint scattered expiratory wheezes. On 4 L/min nasal cannula. Conversational dyspnea noted speaking in 3-4 word phrases. No accessory muscle use. CVS: S1 and S2 distant with no audible murmur, regular rhythm. No extra heart sounds ABDOMEN: No hepatosplenomegaly, active bowel sounds, no guarding or rigidity. SPINE: No scoliosis or deformity SKIN: No rashes CENTRAL NERVOUS SYSTEM: No focal deficits, tone is normal in all 4 extremities. EXTREMITIES: There is no peripheral edema, clubbing, or cyanosis. Peripheral pulses are intact. Results - Laboratory Findings CBC and BMP: 06/11/24 23:21 06/11/24 23:21 PT/INR, D-dimer PT 13.7 sec (10.0-12.5) H 06/11/24 23:21 INR 1.3 (<1.2) H 06/11/24 23:21 D-Dimer 1.14 mg/L FEU (<0.60) H 06/11/24 23:21 Abnormal lab findings: Abnormal Labs 06/11/24 06/11/24 06/11/24 18:57 18:57 18:57 WBC 13.3 H RBC 5.66 H Hgb 18.0 H Hct 54.5 H Neutrophils # 11.4 H Lymphocytes # 0.7 L PT INR D-Dimer Sodium 131 L Potassium 5.6 H Chloride 90 L Carbon Dioxide 20 L BUN 46 H Creatinine 1.70 H Glucose 216 H POC Glucose (mg/dL) Magnesium 2.4 H Total Bilirubin 1.7 H AST 552 H ALT 170 H Troponin I 98.000 H* Albumin 5.2 H 06/11/24 06/11/24 06/11/24 21:17 23:21 23:21 WBC RBC Hgb Hct Neutrophils # Lymphocytes # PT 13.7 H INR 1.3 H D-Dimer 1.14 H Sodium 130 L Potassium Chloride 89 L Carbon Dioxide BUN 47 H Creatinine 1.69 H Glucose 175 H POC Glucose (mg/dL) 148 H Magnesium Total Bilirubin AST ALT Troponin I Albumin 06/11/24 23:21 WBC 14.7 H RBC Hgb 16.3 H Hct 50.6 H Neutrophils # 13.4 H Lymphocytes # 0.5 L PT INR D-Dimer Sodium Potassium Chloride Carbon Dioxide BUN Creatinine Glucose POC Glucose (mg/dL) Magnesium Total Bilirubin AST ALT Troponin I Albumin - Diagnostic Findings Chest x-ray: image reviewed Assessment and Plan Assessment: Acute ST segment elevation [place], heart catheterization noted a totally occluded mid LAD, severe stenosis of the left circumflex, and subtotal occlusion of the proximal RCA. Interventional cardiology unable to restore patency to the LAD. Acute pulmonary edema Possible acute COPD exacerbation; however, acute dyspnea more likely attributed to above Acute hypoxemic respiratory failure, currently on 4 L/min nasal cannula, chest x-ray showing cardiomegaly, pulmonary vascular congestion, and small bilateral pleural effusions. Hyperinflation consistent with COPD. Acute kidney injury, likely cardiorenal Transaminitis, likely secondary to congestion Prediabetes Multivessel coronary artery disease as described above Chronic ongoing tobacco dependence, reportedly 1 pack/day smoker History of rheumatoid arthritis Plan: Continue supplemental oxygen to maintain oxygen saturation of 92% or greater Continues on IV heparin per cardiology Give patient dose of Lasix 20 mg IV push once now and continuing Lasix 40 mg twice daily Echocardiogram scheduled for the morning Continues on dual antiplatelet medications including Plavix and aspirin, as well as low-dose beta-roney and high intensity statin Monitor renal function Continues on bronchodilators, Symbicort inhaler, and IV Solu-Medrol Viral screen negative for influenza A/B, RSV, COVID Smoking cessation counseling performed We will continue to follow I have personally seen and examined the patient, performed the documentation and the assessment and plan as written. Number of minutes spent on the visit:20 Time with Patient: Greater than 30
[2024-06-12 06:22] LABS: Basophils % (A) 0 %; Eosinophils % (A) 0 %; HCT 47.3 % (34.0-46.0); Lymphocytes # (A) 0.7 k/uL (1.0-4.8); Lymphocytes % (A) 5 %; MCH 30.4 pg (25.0-35.0); MCHC 31.7 g/dL (31.0-37.0); MCV 95.7 fL (80.0-100.0); Mean Platelet Volume 7.8; Monocytes # (A) 0.8 k/uL (0-1.0); Monocytes % (A) 5 %; Neutrophils # (A) 13.1 k/uL (1.3-7.7); Neutrophils % (A) 89 %; Platelet Count 170 k/uL (150-450); RBC 4.94 m/uL (3.80-5.40); RDW 13.1 % (11.5-15.5); WBC 14.7 k/uL (3.8-10.6)
[2024-06-12 06:36] LABS: INR 1.4 (<1.2); Prothrombin Time 14.6 sec (10.0-12.5)
[2024-06-12 06:45] LABS: ALT 207 U/L (4-34); AST 506 U/L (14-36); African American GFR (CKD) 41 (>60 ml/min/1.73 sqM); Albumin 4.1 g/dL (3.5-5.0); Alkaline Phosphatase 95 U/L (38-126); Anion Gap 12 mmol/L; Blood Urea Nitrogen 51 mg/dL (7-17); Carbon Dioxide 21 mmol/L (22-30); Chloride 95 mmol/L (98-107); Glucose 164 mg/dL (74-99); Magnesium 2.2 mg/dL (1.6-2.3); Non-African American GFR(CKD) 36 (>60 ml/min/1.73 sqM); Potassium 4.6 mmol/L (3.5-5.1); Sodium 128 mmol/L (137-145); Total Bilirubin 0.9 mg/dL (0.2-1.3); Total Protein 6.4 g/dL (6.3-8.2)
[2024-06-12] MEDS: HEPARIN SODIUM 1,000 UN/ML (10ML VL) IV PRN (07:42)
[2024-06-12] MEDS: PANTOPRAZOLE 40 MG TABLET PO SCH (07:43)
--- NOTE | 2024-06-12 07:50 | P.PN ---
Subjective Progress Note Date: 06/12/24 PROGRESS NOTE The patient is a 68-year-old female with history of chronic tobacco use who presented with symptoms of dyspnea going on for about 3 days and was found to have ST elevation on the lateral precordial leads. She had no chest discomfort. She underwent coronary angiography and was found to have totally occluded mid LAD, severe disease in the proximal RCA with small caliber distally and signif icant disease in the proximal and mid left circumflex. She underwent attempted revascularization of the LAD with inability to restore flow. Her lab data preprocedure showed an NT proBNP of 59,800, troponin of 98,000. She had evidence of renal failure on presentation. She is complaining of persistent dyspnea and symptoms of chest discomfort with deep breathing and position. She continues to be in sinus mechanism, her blood pressure stable. She has no evidence of malignant arrhythmia. Medications: Aspirin, clopidogrel 75 mg daily, Lasix 40 mg IV every 12 hours, IV heparin, methylprednisolone, metoprolol tartrate 12.5 mg twice a day, Nitropaste 1 inch every 8 hours. Atorvastatin 80 mg daily. PHYSICAL EXAMINATION: Blood pressure 117/90 heart rate 103 LUNGS: Decreased air exchange bilaterally HEART: Regular rate and rhythm, S1, S2. No S3. No systolic murmur ABDOMEN: Soft, nontender, no organomegaly EXTREMETIES: No edema, right radial pulse intact LAB: BUN 51, creatinine 1.51, potassium 4.6, WBC 14.7, EKG with persistent ST segment elevation in the lateral precordial leads IMPRESSION: 1. ST segment elevation in the lateral anterior leads with totally occluded LAD. From her lab data and her anatomy it appears that the occlusion occurred about 72 hours at least prior to admission 2. Dyspnea on exertion, probably combination of CHF and COPD 3. Chronic tobacco use 4. Elevated blood sugar, probably diabetes 5. Abnormal liver function test probably liver congestion from her CHF PLAN: 1. Increase beta-roney 2. Obtain an echocardiogram with Doppler 3. Continue IV heparin and IV Lasix 4. Follow renal functions 5. Depending on her progress further recommendations will be made, prognosis is guarded. Objective - Vital Signs Vital signs: Vital Signs Temp 97.7 F 06/12/24 05:30 Pulse 103 H 06/12/24 06:00 Resp 25 H 06/12/24 06:00 BP 117/94 06/12/24 06:00 Pulse Ox 98 06/12/24 06:00 FiO2 Intake & Output 06/11/24 06/12/24 06/12/24 18:59 06:59 18:59 Intake Total 960 50.391 Output Total 400 Balance 560 50.391 Weight 49.895 kg 51.5 kg Intake: IV 960 Sodium Chloride 0.9% 1, 610 000 ml @ 75 mls/hr IV . [id number] LJ Rx#:[id number] Intake, IV Titration 50.391 Amount Heparin Sod,Pork in 0.45% 50.391 NaCl 25,000 unit In 0.45 % NaCl 1 250ml.bag @ 12 UNITS/KG/HR 5.987 mls/hr IV .Q24H LJ Rx#: [id number] Output: Urine 400 Other: Voiding Method External Catheter # Voids 1 - Labs CBC & Chem 7: 06/12/24 05:49 06/12/24 05:49 Labs: Abnormal Lab Results - Last 24 Hours (Table) 06/11/24 06/11/24 06/11/24 Range/Units 18:57 18:57 18:57 WBC 13.3 H (3.8-10.6) k/uL RBC 5.66 H (3.80-5.40) m/uL Hgb 18.0 H (11.4-16.0) gm/dL Hct 54.5 H (34.0-46.0) % Neutrophils # 11.4 H (1.3-7.7) k/uL Lymphocytes # 0.7 L (1.0-4.8) k/uL PT (10.0-12.5) sec INR (<1.2) APTT (22.0-30.0) sec D-Dimer (<0.60) mg/L FEU Sodium 131 L (137-145) mmol/L Potassium 5.6 H (3.5-5.1) mmol/L Chloride 90 L (98-107) mmol/L Carbon Dioxide 20 L (22-30) mmol/L BUN 46 H (7-17) mg/dL Creatinine 1.70 H (0.52-1.04) mg/dL Glucose 216 H (74-99) mg/dL POC Glucose (mg/dL) (70-110) mg/dL Hemoglobin A1c (<=6.0) % Magnesium 2.4 H (1.6-2.3) mg/dL Total Bilirubin 1.7 H (0.2-1.3) mg/dL AST 552 H (14-36) U/L ALT 170 H (4-34) U/L Troponin I 98.000 H* (0.000-0.034) ng/mL Albumin 5.2 H (3.5-5.0) g/dL 06/11/24 06/11/24 06/11/24 Range/Units 18:57 21:17 23:21 WBC (3.8-10.6) k/uL RBC (3.80-5.40) m/uL Hgb (11.4-16.0) gm/dL Hct (34.0-46.0) % Neutrophils # (1.3-7.7) k/uL Lymphocytes # (1.0-4.8) k/uL PT 13.7 H (10.0-12.5) sec INR 1.3 H (<1.2) APTT (22.0-30.0) sec D-Dimer 1.14 H (<0.60) mg/L FEU Sodium (137-145) mmol/L Potassium (3.5-5.1) mmol/L Chloride (98-107) mmol/L Carbon Dioxide (22-30) mmol/L BUN (7-17) mg/dL Creatinine (0.52-1.04) mg/dL Glucose (74-99) mg/dL POC Glucose (mg/dL) 148 H (70-110) mg/dL Hemoglobin A1c 6.3 H (<=6.0) % Magnesium (1.6-2.3) mg/dL Total Bilirubin (0.2-1.3) mg/dL AST (14-36) U/L ALT (4-34) U/L Troponin I (0.000-0.034) ng/mL Albumin (3.5-5.0) g/dL 06/11/24 06/11/24 06/12/24 Range/Units 23:21 23:21 05:49 WBC 14.7 H 14.7 H (3.8-10.6) k/uL RBC (3.80-5.40) m/uL Hgb 16.3 H (11.4-16.0) gm/dL Hct 50.6 H 47.3 H (34.0-46.0) % Neutrophils # 13.4 H 13.1 H (1.3-7.7) k/uL Lymphocytes # 0.5 L 0.7 L (1.0-4.8) k/uL PT (10.0-12.5) sec INR (<1.2) APTT (22.0-30.0) sec D-Dimer (<0.60) mg/L FEU Sodium 130 L (137-145) mmol/L Potassium (3.5-5.1) mmol/L Chloride 89 L (98-107) mmol/L Carbon Dioxide (22-30) mmol/L BUN 47 H (7-17) mg/dL Creatinine 1.69 H (0.52-1.04) mg/dL Glucose 175 H (74-99) mg/dL POC Glucose (mg/dL) (70-110) mg/dL Hemoglobin A1c (<=6.0) % Magnesium (1.6-2.3) mg/dL Total Bilirubin (0.2-1.3) mg/dL AST (14-36) U/L ALT (4-34) U/L Troponin I (0.000-0.034) ng/mL Albumin (3.5-5.0) g/dL 06/12/24 06/12/24 06/12/24 Range/Units 05:49 05:49 05:49 WBC (3.8-10.6) k/uL RBC (3.80-5.40) m/uL Hgb (11.4-16.0) gm/dL Hct (34.0-46.0) % Neutrophils # (1.3-7.7) k/uL Lymphocytes # (1.0-4.8) k/uL PT 14.6 H (10.0-12.5) sec INR 1.4 H (<1.2) APTT 39.7 H (22.0-30.0) sec D-Dimer (<0.60) mg/L FEU Sodium 128 L (137-145) mmol/L Potassium (3.5-5.1) mmol/L Chloride 95 L (98-107) mmol/L Carbon Dioxide 21 L (22-30) mmol/L BUN 51 H (7-17) mg/dL Creatinine 1.51 H (0.52-1.04) mg/dL Glucose 164 H (74-99) mg/dL POC Glucose (mg/dL) (70-110) mg/dL Hemoglobin A1c (<=6.0) % Magnesium (1.6-2.3) mg/dL Total Bilirubin (0.2-1.3) mg/dL AST 506 H (14-36) U/L ALT 207 H (4-34) U/L Troponin I (0.000-0.034) ng/mL Albumin (3.5-5.0) g/dL
[2024-06-12] MEDS ORDERED: SYMBICORT 80-4.5 MCG INHALER INHALATION SCH (08:00)
[2024-06-12] MEDS: IPRATROPIUM-ALBUTEROL 3 ML NEB INHALATION SCH (08:11)
[2024-06-12] MEDS: SYMBICORT 160-4.5 MCG INHALER INHALATION SCH (08:11)
[2024-06-12] MEDS: methylPREDNISolone SOD SUCCI 40 MG/ML 1 ML VIAL IV SCH (08:17)
[2024-06-12] MEDS: FUROSEMIDE 10 MG/ML 4 ML VIAL IV SCH (08:18)
[2024-06-12] MEDS: ATORVASTATIN 80 MG TAB PO SCH (08:18)
[2024-06-12] MEDS: NITROGLYCERIN OINT 1 INCH/GM PACKET TOPICAL SCH (08:18)
[2024-06-12] MEDS: ASPIRIN 81 MG PO SCH (08:18)
[2024-06-12] MEDS: CLOPIDOGREL 75 MG TAB PO SCH (08:18)
[2024-06-12] MEDS: METOPROLOL TARTRATE 25 MG TAB PO SCH (08:18)
[2024-06-12] MEDS: ONDANSETRON 4 MG/2 ML VIAL IVP PRN (08:44)
--- NOTE | 2024-06-12 08:55 | XR ---
EXAMINATION TYPE: XR chest 1V portable DATE OF EXAM: 06/12/2024 4:14 AM COMPARISON: 06/11/2024 CLINICAL INDICATION: Female, 68 years old with history of pulmonary edema, TECHNIQUE: XR chest 1V portable view(s) obtained. FINDINGS: The heart size is normal. The pulmonary vasculature is prominent. Mild bibasilar infiltrates are present. Minimal effusions may be present. IMPRESSION: 1. Mild bibasilar infiltrates with small pleural effusions. Correlate for subsegmental atelectasis. P ulmonary edema could be considered. [facility], , 06/12/2024 8:53 AM
[2024-06-12 09:00] LABS: Chol/HDL Ratio 3.98 Ratio; LDL Cholesterol,Calculated 138.4 mg/dL (0.0-131.0)
[2024-06-12] MEDS ORDERED: methylPREDNISolone SOD SUCCI 40 MG/ML 1 ML VIAL IV SCH (09:00)
[2024-06-12] MEDS ORDERED: METOPROLOL TARTRATE 12.5 MG TAB PO SCH (09:00)
[2024-06-12 12:00] LABS: Glucose,Whole Blood 173 mg/dL (70-110)
--- NOTE | 2024-06-12 12:52 | P.CNPUL ---
History of Present Illness Consult date: 06/12/24 Reason for consult: chest pain History of present illness: Patient is 68-year-old female with past medical history significant for COPD and chronic ongoing tobacco dependence. Presented to the emergency department yesterday evening with a chief complaint of progressively worsening shortness of breath over the last 24-48 hours. Worsening overnight. Denies any overt chest pain. Denies any lower extremity edema. Associated nausea without emesis. No diaphoresis. EKG showing ST segment elevations in anterior leads. Patient was taken to the catheterization lab which noted a totally occluded mid LAD, severe stenosis of the left circumflex, and subtotal occlusion of the proximal RCA. Interventional cardiology unable to restore patency to the LAD. Following the heart catheterization, patient was sent to the intensive care unit. Continues to report severe ongoing shortness of breath. Chest x-ray from last night showing cardiomegaly, pulmonary vascular congestion, and small bilateral pleural effusions. Hyperinflation consistent with COPD. CBC: WBC count 14.7, hemoglobin 16.3, platelets 192. CMP: Sodium 130, potassium 4.7, chloride 89, serum bicarb 25, BUN 47, creatinine 1.69, glucose 175. NT proBNP 59,800. Troponin is peaked at 98. Viral screen unremarkable for influenza, RSV, COVID. Patient currently being evaluated in the ICU. Continues on IV heparin infusion per protocol. Normal sinus infusing at 75 mL/h. Patient denies any chest pain. Continues to report ongoing shortness of breath. A pulmonary consult was placed for COPD exacerbation. She is sitting erect in bed. On 4 L/min nasal cannula. SpO2 reading 97%. She is tachypneic. Does reportedly have history of COPD. Smokes 1 pack/day. Denies infectious-like symptoms. Denies coughing, sputum production, fever/chills. Did have few episodes of self-limiting loose stools outpatient. No her dyspnea more likely related to her pulmonary edema and ST segment elevation CO. She has been started on Lasix 40 mg twice daily. Also, started on dual antiplatelet medications including aspirin and Plavix. Started on a low-dose beta-roney and high intensity statin. Most recent vital signs afebrile, heart rate 102 bpm, blood pressure 123/67 mmHg, respiratory rate in the mid 20s, SpO2 97% on 4 L/min nasal cannula. This morning, the patient continues to have episodes of chest pain. Cardiology is aware. She is producing adequate amount of urine output. No significant respiratory distress. She is a chronic smoker. Hemodynamically stable. Echocardiogram is being completed this morning. Digital Engineer on the case. Review of Systems Constitutional: Reports fatigue, Denies chills, Denies fever, Denies poor appetite, Denies sweats, Denies weight gain, Denies weight loss Ears, nose, mouth and throat: Denies headache, Denies sore throat Cardiovascular: Reports dyspnea on exertion, Reports orthopnea, Reports shortness of breath, Denies chest pain, Denies leg edema, Denies lightheadedness, Denies palpitations, Denies paroxysmal nocturnal dyspnea, Denies syncope Respiratory: Reports dyspnea, Denies congestion, Denies cough, Denies excessive sputum, Denies home oxygen Gastrointestinal: Reports diarrhea, Denies abdominal pain, Denies hematemesis, Denies hematochezia, Denies melena, Denies nausea, Denies vomiting Genitourinary: Denies dysuria Musculoskeletal: Denies limitation of motion Integumentary: Denies rash Neurological: Denies seizures, Denies syncope Psychiatric: Denies anxiety, Denies depression Past Medical History Past Medical History: Osteoarthritis (OA), Rheumatoid Arthritis (RA) Additional Past Medical History / Comment(s): Pt states unconfirmed autoimmune disorders History of Any Multi-Drug Resistant Organisms: None Reported Past Surgical History: Appendectomy, Hysterectomy Past Psychological History: No Psychological Hx Reported Smoking Status: Current every day smoker Past Alcohol Use History: None Reported Past Drug Use History: None Reported Medications and Allergies Home Medications Medication Instructions Recorded Confirmed Type Etodolac [Lodine] 400 mg PO BID PRN 07/09/17 06/11/24 History Albuterol Nebulized [Ventolin 2.5 mg INHALATION RT-QID PRN 06/11/24 06/11/24 History Nebulized] Allergies Allergy/AdvReac Type Severity Reaction Status Date / Time Iodinated Contrast Media Allergy Unknown Verified 06/11/24 18:59 Penicillins Allergy Rash/Hives Verified 06/11/24 18:48 morphine AdvReac Nausea & Verified 06/11/24 18:48 Vomiting Physical Exam Vitals: Vital Signs Temp Pulse Resp BP Pulse Ox 06/12/24 12:20 105 H 06/12/24 12:12 105 H 06/12/24 10:30 105 H 22 114/46 95 06/12/24 10:00 107 H 22 121/72 97 06/12/24 09:30 97.6 F 106 H 21 117/62 97 06/12/24 09:00 104 H 24 114/83 100 06/12/24 08:30 109 H 16 96/54 97 06/12/24 08:25 104 H 06/12/24 08:12 106 H 98 06/12/24 08:00 94.7 F L 106 H 21 109/69 95 06/12/24 07:30 108 H 21 120/68 97 06/12/24 07:00 106 H 24 115/102 96 06/12/24 06:30 109 H 24 116/84 98 06/12/24 06:00 103 H 25 H 117/94 98 06/12/24 05:30 97.7 F 104 H 22 117/94 97 06/12/24 05:00 107 H 20 122/97 97 06/12/24 04:30 116 H 22 119/97 98 06/12/24 04:00 94.5 F L 101 H 18 113/75 97 06/12/24 03:30 108 H 20 113/82 97 06/12/24 03:00 105 H 21 111/85 97 06/12/24 02:30 105 H 20 92/81 98 06/12/24 02:00 104 H 20 122/90 98 06/12/24 01:30 105 H 18 140/67 98 06/12/24 01:00 102 H 22 123/67 97 06/12/24 00:30 107 H 22 100/47 97 06/12/24 00:00 105 H 28 H 114/75 97 06/11/24 23:30 111 H 22 122/50 97 06/11/24 23:06 109 H 18 122/50 95 06/11/24 23:00 109 H 30 H 107/67 95 06/11/24 22:45 113 H 20 116/80 97 06/11/24 22:30 28 H 113/92 96 06/11/24 22:15 123 H 22 107/86 96 06/11/24 22:00 112 H 20 122/44 96 06/11/24 21:45 121 H 20 118/97 96 06/11/24 21:30 122 H 24 122/86 96 06/11/24 19:12 119 H 26 H 123/97 96 06/11/24 19:00 122 H 30 H 102/73 98 06/11/24 18:54 121 H 20 128/89 99 06/11/24 18:44 97.1 F L 129 H 20 Intake and Output 06/11/24 06/12/24 06/12/24 22:59 06:59 14:59 Intake Total 425 535 80.391 Output Total 0 400 100 Balance 425 135 -19.609 Intake: IV 425 535 30 Sodium Chloride 0.9% 1, 75 535 30 000 ml @ 75 mls/hr IV . [id number] LJ Rx#:[id number] Intake, IV Titration 50.391 Amount Heparin Sod,Pork in 0.45% 50.391 NaCl 25,000 unit In 0.45 % NaCl 1 250ml.bag @ 12 UNITS/KG/HR 5.987 mls/hr IV .Q24H LJ Rx#: [id number] Output: Urine 0 400 100 Other: Voiding Method External Catheter External Catheter # Voids 1 1 Weight 49.895 kg 51.5 kg GENERAL EXAM: Alert, 68-year-old white female, sitting erect in bed, on 4 L/min nasal cannula, and a mild amount of respiratory distress HEAD: Normocephalic and atraumatic EYES: Normal reaction of pupils, equal size. NOSE: Clear with pink turbinates. THROAT: No erythema or exudates. NECK: No masses, no JVD. CHEST: No chest wall deformity. LUNGS: Equal air entry with diminished bilateral lung sounds. Faint scattered expiratory wheezes. On 4 L/min nasal cannula. Conversational dyspnea noted speaking in 3-4 word phrases. No accessory muscle use. CVS: S1 and S2 distant with no audible murmur, regular rhythm. No extra heart sounds ABDOMEN: No hepatosplenomegaly, active bowel sounds, no guarding or rigidity. SPINE: No scoliosis or deformity SKIN: No rashes CENTRAL NERVOUS SYSTEM: No focal deficits, tone is normal in all 4 extremities. EXTREMITIES: There is no peripheral edema, clubbing, or cyanosis. Peripheral pulses are intact. Results - Laboratory Findings CBC and BMP: 06/12/24 05:49 06/12/24 05:49 PT/INR, D-dimer PT 14.6 sec (10.0-12.5) H 06/12/24 05:49 INR 1.4 (<1.2) H 06/12/24 05:49 D-Dimer 1.14 mg/L FEU (<0.60) H 06/11/24 23:21 Abnormal lab findings: Abnormal Labs 06/11/24 06/11/24 06/11/24 18:57 18:57 18:57 WBC 13.3 H RBC 5.66 H Hgb 18.0 H Hct 54.5 H Neutrophils # 11.4 H Lymphocytes # 0.7 L PT INR APTT D-Dimer Sodium 131 L Potassium 5.6 H Chloride 90 L Carbon Dioxide 20 L BUN 46 H Creatinine 1.70 H Glucose 216 H POC Glucose (mg/dL) Hemoglobin A1c Magnesium 2.4 H Total Bilirubin 1.7 H AST 552 H ALT 170 H Troponin I 98.000 H* Albumin 5.2 H Triglycerides Cholesterol LDL Cholesterol, Calc 06/11/24 06/11/24 06/11/24 18:57 21:17 23:21 WBC RBC Hgb Hct Neutrophils # Lymphocytes # PT 13.7 H INR 1.3 H APTT D-Dimer 1.14 H Sodium Potassium Chloride Carbon Dioxide BUN Creatinine Glucose POC Glucose (mg/dL) 148 H Hemoglobin A1c 6.3 H Magnesium Total Bilirubin AST ALT Troponin I Albumin Triglycerides Cholesterol LDL Cholesterol, Calc 06/11/24 06/11/24 06/12/24 23:21 23:21 05:49 WBC 14.7 H 14.7 H RBC Hgb 16.3 H Hct 50.6 H 47.3 H Neutrophils # 13.4 H 13.1 H Lymphocytes # 0.5 L 0.7 L PT INR APTT D-Dimer Sodium 130 L Potassium Chloride 89 L Carbon Dioxide BUN 47 H Creatinine 1.69 H Glucose 175 H POC Glucose (mg/dL) Hemoglobin A1c Magnesium Total Bilirubin AST ALT Troponin I Albumin Triglycerides 195.00 H Cholesterol 237.00 H LDL Cholesterol, Calc 138.4 H 06/12/24 06/12/24 06/12/24 05:49 05:49 05:49 WBC RBC Hgb Hct Neutrophils # Lymphocytes # PT 14.6 H INR 1.4 H APTT 39.7 H D-Dimer Sodium 128 L Potassium Chloride 95 L Carbon Dioxide 21 L BUN 51 H Creatinine 1.51 H Glucose 164 H POC Glucose (mg/dL) Hemoglobin A1c Magnesium Total Bilirubin AST 506 H ALT 207 H Troponin I Albumin Triglycerides Cholesterol LDL Cholesterol, Calc 06/12/24 11:58 WBC RBC Hgb Hct Neutrophils # Lymphocytes # PT INR APTT D-Dimer Sodium Potassium Chloride Carbon Dioxide BUN Creatinine Glucose POC Glucose (mg/dL) 173 H Hemoglobin A1c Magnesium Total Bilirubin AST ALT Troponin I Albumin Triglycerides Cholesterol LDL Cholesterol, Calc Assessment and Plan Plan: Acute ST segment elevation CO, heart catheterization noted a totally occluded mid LAD, severe stenosis of the left circumflex, and subtotal occlusion of the proximal RCA. Interventional cardiology unable to restore patency to the LAD. The patient continues to have episodes of chest pain. The patient is on nitrate and IV heparin. Hemodynamically stable. No significant cardiac arrhythmias. Acute pulmonary edema, improving and the patient is currently on IV Lasix, responding to diuretics with adequate urine output. Advanced COPD, utilizing albuterol rescue inhaler on as-needed basis on an outpatient basis. No maintenance respiratory medications. No evidence of any pneumonia. She is a chronic smoker. Acute hypoxemic respiratory failure, currently on 4 L/min nasal cannula, chest x-ray showing cardiomegaly, pulmonary vascular congestion, and small bilateral pleural effusions. Hyperinflation consistent with COPD. Acute kidney injury, likely cardiorenal, creatinine is improving Transaminitis, likely secondary to congestion Prediabetes Multivessel coronary artery disease as described above Chronic ongoing tobacco dependence, reportedly 1 pack/day smoker History of rheumatoid arthritis Plan: Patient will be kept in the intensive care unit Digital Engineer on the case, and we are awaiting further recommendations regarding her multivessel coronary artery disease Continue supplemental oxygen to maintain oxygen saturation of 92% or greater, currently on 4 L Continues on IV heparin per cardiology Continue nitrates Continue IV Lasix Echocardiogram was performed this morning, awaiting final report. There is indication of systolic heart failure with impaired LV function. Continues on dual antiplatelet medications including Plavix and aspirin, as well as low-dose beta-roney and high intensity statin Monitor renal function, creatinine is improving Continues on bronchodilators, Symbicort inhaler, and IV Solu-Medrol will be continued for another 24 hours to be able to a prednisone burst taper as of tomorrow Viral screen negative for influenza A/B, RSV, COVID Smoking cessation counseling performed We will continue to follow Condition is critical and the patient will be kept in the intensive care unit. Pending further recommendations from cardiology regarding her multivessel coronary artery disease. Evaluation was done and 35 minutes. Time with Patient: Greater than 30
[2024-06-12] MEDS ORDERED: DEXTROSE 50% SYRINGE 50 ML IVP PRN ×2 (14:08)
--- NOTE | 2024-06-12 14:11 | P.PN ---
Subjective Progress Note Date: 06/12/24 Hospital Course: 68-year-old female with past medical history of COPD, tobacco use disorder, RA, who presented for progressively worsening SOB. EKG in the ER showed sinus rhythm with ST elevation with V3-V6. She was taken to the [facility] that showed total occlusion of the mid LAD, severe stenosis of mid left circumflex, proximal,, subtotal occlusion of the proximal RCA, diffuse intimal disease in the distal vessel, inability to restore flow into the LAD representing more chronic occlusion. Patient was transferred to ICU, continued on aspirin, Plavix, started on beta-roney, statin, smoking cessation was discussed. She was continued on IV heparin, IV Lasix, nitrates, IV steroids. Viral screen was negative. TTE done, pending final read. 06/12 she complains of ongoing shortness of breath, episodic chest pain. She is hemodynamically stable, heart rate goes in 100s at times. She is on 4 L of nasal cannula. Chest x-ray showed bibasilar infiltrates, small pleural effusions, pulmonary vascular congestion. Pertinent positives and negatives as discussed above, a complete review of systems was performed and all other systems are negative. Vitals Signs Reviewed. General: [nontoxic], [ill-appearing, [appears at stated age] Derm: [warm], [dry] Head: [atraumatic], [normocephalic], [symmetric] Eyes: [EOMI], [no lid lag], [anicteric sclera] Mouth: [no lip lesion], [mucus membranes moist] Cardiovascular: [S1S2 reg], [no murmur] Lungs: Diminished bibasilar breath sounds, a few wheezes at the end of expiration,], [no rhonchi, no rales] , [in respiratory distress, Abdominal: [soft], [ nontender to palpation], [no guarding], [no appreciable organomegaly] Ext: [no gross muscle atrophy], [no edema], [no contractures] Neuro: [ CN II-XI grossly intact], [no focal neuro deficits] Psych: [Alert], [oriented], [appropriate affect] Data Reviewed Today: Pertinent Labs: Leukocytosis stable 13.7, hemoglobin normal 15.0, platelet count normal, sodium 128, potassium 4.6, creatinine 1.59, blood glucose is below 180s, AST ALT 546 and 207 accordingly, LDL 138, elevated cholesterol 227 and triglycerides 195 Assessment and Plan: STEMI status post 06/11 showing totally occluded mid LAD, unable to stent Acute hypoxic respiratory failure secondary to acute pulmonary edema acute elevation of liver enzymes secondary to hepatic congestion Leukocytosis, likely reactive COPD not on home oxygen -Cardiology, pulmonology following -TTE done, pending -Continue IV heparin -Continue IV Lasix 40 twice daily -Lopressor increased to 25 twice daily -Continue as needed nitroglycerin and Nitropaste -Continue dual antiplatelet with aspirin 81 and clopidogrel 51 daily -Continue high intensity statin 80 mg daily -Continue Symbicort 2 puffs twice daily, continue DuoNeb 4 times daily -Continue Solu-Medrol 40 mg twice daily IV -Continue Protonix 40 daily oral -Monitor CBC and CMP ZEB, likely cardiorenal Hyperkalemia, resolved -monito BMP, continue lasix, Cr improving, strict I&O Prediabetes -Accu-Cheks, SSI Hyperlipidemia: Continue atorvastatin 80 Tobacco dependence: Smoking cessation discussed DVT ppx: Heparin drip Code status: Full code Anticipated discharge place: Pending clinical course Anticipated discharge time: Pending clinical course Objective - Vital Signs Vital signs: Vital Signs Temp 97.5 F L 06/12/24 12:00 Pulse 92 06/12/24 13:00 Resp 17 06/12/24 13:00 BP 105/66 06/12/24 13:00 Pulse Ox 97 06/12/24 13:00 FiO2 Intake & Output 06/11/24 06/12/24 06/12/24 18:59 06:59 18:59 Intake Total 960 120.391 Output Total 400 100 Balance 560 20.391 Weight 49.895 kg 51.5 kg Intake: IV 960 70 Sodium Chloride 0.9% 1, 610 70 000 ml @ 75 mls/hr IV . [id number] [facility] Rx#:[id number] Intake, IV Titration 50.391 Amount Heparin Sod,Pork in 0.45% 50.391 NaCl 25,000 unit In 0.45 % NaCl 1 250ml.bag @ 12 UNITS/KG/HR 5.987 mls/hr IV .Q24H [facility] Rx#: [id number] Output: Urine 400 100 Other: Voiding Method External Catheter External Catheter # Voids 1 1 - Labs CBC & Chem 7: 06/12/24 05:49 06/12/24 05:49 Labs: Abnormal Lab Results - Last 24 Hours (Table) 06/11/24 06/11/24 06/11/24 Range/Units 18:57 18:57 18:57 WBC 13.3 H (3.8-10.6) k/uL RBC 5.66 H (3.80-5.40) m/uL Hgb 18.0 H (11.4-16.0) gm/dL Hct 54.5 H (34.0-46.0) % Neutrophils # 11.4 H (1.3-7.7) k/uL Lymphocytes # 0.7 L (1.0-4.8) k/uL PT (10.0-12.5) sec INR (<1.2) APTT (22.0-30.0) sec D-Dimer (<0.60) mg/L FEU Sodium 131 L (137-145) mmol/L Potassium 5.6 H (3.5-5.1) mmol/L Chloride 90 L (98-107) mmol/L Carbon Dioxide 20 L (22-30) mmol/L BUN 46 H (7-17) mg/dL Creatinine 1.70 H (0.52-1.04) mg/dL Glucose 216 H (74-99) mg/dL POC Glucose (mg/dL) (70-110) mg/dL Hemoglobin A1c (<=6.0) % Magnesium 2.4 H (1.6-2.3) mg/dL Total Bilirubin 1.7 H (0.2-1.3) mg/dL AST 552 H (14-36) U/L ALT 170 H (4-34) U/L Troponin I 98.000 H* (0.000-0.034) ng/mL Albumin 5.2 H (3.5-5.0) g/dL Triglycerides (0.00-149.00) mg/dL Cholesterol (0.00-200.00) mg/dL LDL Cholesterol, Calc (0.0-131.0) mg/dL 06/11/24 06/11/24 06/11/24 Range/Units 18:57 21:17 23:21 WBC (3.8-10.6) k/uL RBC (3.80-5.40) m/uL Hgb (11.4-16.0) gm/dL Hct (34.0-46.0) % Neutrophils # (1.3-7.7) k/uL Lymphocytes # (1.0-4.8) k/uL PT 13.7 H (10.0-12.5) sec INR 1.3 H (<1.2) APTT (22.0-30.0) sec D-Dimer 1.14 H (<0.60) mg/L FEU Sodium (137-145) mmol/L Potassium (3.5-5.1) mmol/L Chloride (98-107) mmol/L Carbon Dioxide (22-30) mmol/L BUN (7-17) mg/dL Creatinine (0.52-1.04) mg/dL Glucose (74-99) mg/dL POC Glucose (mg/dL) 148 H (70-110) mg/dL Hemoglobin A1c 6.3 H (<=6.0) % Magnesium (1.6-2.3) mg/dL Total Bilirubin (0.2-1.3) mg/dL AST (14-36) U/L ALT (4-34) U/L Troponin I (0.000-0.034) ng/mL Albumin (3.5-5.0) g/dL Triglycerides (0.00-149.00) mg/dL Cholesterol (0.00-200.00) mg/dL LDL Cholesterol, Calc (0.0-131.0) mg/dL 06/11/24 06/11/24 06/12/24 Range/Units 23:21 23:21 05:49 WBC 14.7 H 14.7 H (3.8-10.6) k/uL RBC (3.80-5.40) m/uL Hgb 16.3 H (11.4-16.0) gm/dL Hct 50.6 H 47.3 H (34.0-46.0) % Neutrophils # 13.4 H 13.1 H (1.3-7.7) k/uL Lymphocytes # 0.5 L 0.7 L (1.0-4.8) k/uL PT (10.0-12.5) sec INR (<1.2) APTT (22.0-30.0) sec D-Dimer (<0.60) mg/L FEU Sodium 130 L (137-145) mmol/L Potassium (3.5-5.1) mmol/L Chloride 89 L (98-107) mmol/L Carbon Dioxide (22-30) mmol/L BUN 47 H (7-17) mg/dL Creatinine 1.69 H (0.52-1.04) mg/dL Glucose 175 H (74-99) mg/dL POC Glucose (mg/dL) (70-110) mg/dL Hemoglobin A1c (<=6.0) % Magnesium (1.6-2.3) mg/dL Total Bilirubin (0.2-1.3) mg/dL AST (14-36) U/L ALT (4-34) U/L Troponin I (0.000-0.034) ng/mL Albumin (3.5-5.0) g/dL Triglycerides 195.00 H (0.00-149.00) mg/dL Cholesterol 237.00 H (0.00-200.00) mg/dL LDL Cholesterol, Calc 138.4 H (0.0-131.0) mg/dL 06/12/24 06/12/24 06/12/24 Range/Units 05:49 05:49 05:49 WBC (3.8-10.6) k/uL RBC (3.80-5.40) m/uL Hgb (11.4-16.0) gm/dL Hct (34.0-46.0) % Neutrophils # (1.3-7.7) k/uL Lymphocytes # (1.0-4.8) k/uL PT 14.6 H (10.0-12.5) sec INR 1.4 H (<1.2) APTT 39.7 H (22.0-30.0) sec D-Dimer (<0.60) mg/L FEU Sodium 128 L (137-145) mmol/L Potassium (3.5-5.1) mmol/L Chloride 95 L (98-107) mmol/L Carbon Dioxide 21 L (22-30) mmol/L BUN 51 H (7-17) mg/dL Creatinine 1.51 H (0.52-1.04) mg/dL Glucose 164 H (74-99) mg/dL POC Glucose (mg/dL) (70-110) mg/dL Hemoglobin A1c (<=6.0) % Magnesium (1.6-2.3) mg/dL Total Bilirubin (0.2-1.3) mg/dL AST 506 H (14-36) U/L ALT 207 H (4-34) U/L Troponin I (0.000-0.034) ng/mL Albumin (3.5-5.0) g/dL Triglycerides (0.00-149.00) mg/dL Cholesterol (0.00-200.00) mg/dL LDL Cholesterol, Calc (0.0-131.0) mg/dL 06/12/24 Range/Units 11:58 WBC (3.8-10.6) k/uL RBC (3.80-5.40) m/uL Hgb (11.4-16.0) gm/dL Hct (34.0-46.0) % Neutrophils # (1.3-7.7) k/uL Lymphocytes # (1.0-4.8) k/uL PT (10.0-12.5) sec INR (<1.2) APTT (22.0-30.0) sec D-Dimer (<0.60) mg/L FEU Sodium (137-145) mmol/L Potassium (3.5-5.1) mmol/L Chloride (98-107) mmol/L Carbon Dioxide (22-30) mmol/L BUN (7-17) mg/dL Creatinine (0.52-1.04) mg/dL Glucose (74-99) mg/dL POC Glucose (mg/dL) 173 H (70-110) mg/dL Hemoglobin A1c (<=6.0) % Magnesium (1.6-2.3) mg/dL Total Bilirubin (0.2-1.3) mg/dL AST (14-36) U/L ALT (4-34) U/L Troponin I (0.000-0.034) ng/mL Albumin (3.5-5.0) g/dL Triglycerides (0.00-149.00) mg/dL Cholesterol (0.00-200.00) mg/dL LDL Cholesterol, Calc (0.0-131.0) mg/dL
[2024-06-12] MEDS: SODIUM CHLORIDE 0.9% 500 ML 250 ML IV ONE (14:15)
[2024-06-12] MEDS: NOREPINEPHRINE 4 MG in SODIUM CHLORIDE 0.9% 250 ML IV SCH (15:00)
[2024-06-12] MEDS: PROCHLORPERAZINE INJ 10 MG/2 ML VIAL IVP PRN (16:49)
[2024-06-12 16:53] LABS: Glucose,Whole Blood 192 mg/dL (70-110)
[2024-06-12] MEDS: INSULIN ASPART (NovoLOG) 100 UNIT/ML VIAL SQ SCH (16:59)
[2024-06-12 20:01] LABS: Glucose,Whole Blood 184 mg/dL (70-110)
[2024-06-12] MEDS: VASOPRESSIN 20 UNIT in SODIUM CHLORIDE 0.9% 50 ML IV SCH (22:57)
[2024-06-13] MEDS: guaiFENesin SYRUP 100MG/5ML 200 MG/10 ML CUP PO PRN (03:56)
[2024-06-13 06:12] LABS: Glucose,Whole Blood 206 mg/dL (70-110)
--- NOTE | 2024-06-13 07:22 | CA ---
Transthoracic Echo Report Name: Farrah Garcia Age: 68 Gender: F : 1955 Exam Date: 06/12/2024 09:45 Exam Location: [place] [facility] Ht (in): 63 Wt (lb): 110 Ordering Physician: Higinio Martinez MD ([id number]) Attending/Referring Phys: 3Rd Mate Tracey Rahman RDCS Procedure CPT: Indications: TX Cardiac Hx: Technical Quality: Technically difficult study Contrast 1: Definity Total Dose (mL): 3 Contrast 2: Total Dose (mL): MEASUREMENTS (Male / Female) Normal Values 2D ECHO LV Diastolic Diameter PLAX 4.9 cm 4.2 - 5.9 / 3.9 - 5.3 cm LV Systolic Diameter PLAX 4.3 cm IVS Diastolic Thickness 0.8 cm 0.6 - 1.0 / 0.6 - 0.9 cm LVPW Diastolic Thickness 0.8 cm 0.6 - 1.0 / 0.6 - 0.9 cm LV Relative Wall Thickness 0.3 LVOT Diameter 1.9 cm LV Diastolic Volume MOD BP 122.5 cm??? 67 - 155 / 56 - 104 cm??? LV Systolic Volume MOD BP 96.1 cm??? 22 - 58 / 19 - 49 cm??? LV Ejection Fraction MOD BP 21.5 % >= 55 % LV Cardiac Index MOD BP 1934.5 cm???/min???m??? LV Diastolic Volume MOD 4C 126.1 cm??? LV Systolic Volume MOD 4C 103.4 cm??? LV Ejection Fraction MOD 4C 18.0 % LV Cardiac Index MOD 4C 1664.7 cm???/min???m??? LV Diastolic Length 4C 8.2 cm LV Systolic Length 4C 7.8 cm LV Diastolic Volume MOD 2C 109.8 cm??? LV Systolic Volume MOD 2C 84.3 cm??? LV Ejection Fraction MOD 2C 23.2 % LV Cardiac Index MOD 2C 1869.6 cm???/min???m??? LV Diastolic Length 2C 7.6 cm LV Systolic Length 2C 7.3 cm LA Volume 29.7 cm??? 18 - 58 / 22 - 52 cm??? LA Volume Index 20.0 cm???/m??? 16 - 28 cm???/m??? DOPPLER AV Peak Velocity 59.6 cm/s AV Peak Gradient 1.4 mmHg AV Mean Velocity 45.8 cm/s AV Mean Gradient 0.9 mmHg AV Velocity Time Integral 6.4 cm LVOT Peak Velocity 42.9 cm/s LVOT Peak Gradient 0.7 mmHg LVOT Velocity Time Integral 5.5 cm LVOT Stroke Volume 16.1 cm??? LVOT Stroke Volume Index 10.8 ml/m??? LVOT Cardiac Index 1183.8 cm???/min???m??? AV Area Cont Eq vti 2.5 cm??? AV Area Cont Eq pk 2.1 cm??? PV Peak Velocity 58.9 cm/s PV Peak Gradient 1.4 mmHg FINDINGS Left Ventricle Left ventricular ejection fraction is estimated at 15-20 %. Moderately increased left ventricular diastolic volume. Severely increased left ventricular systolic volume. Severely decreased left ventricular ejection fraction with regional variability. Right Ventricle Mild right ventricular dilatation. Severely reduced right ventricular global systolic function. Unable to estimate the right ventricular systolic pressure. Right Atrium Normal right atrial size. Left Atrium Normal left atrial size. Mitral Valve Mitral valve thickened. No evidence for mitral valve prolapse. No mitral stenosis. Moderate mitral regurgitation. Aortic Valve Trileaflet aortic valve. Diffuse thickening (sclerosis) of the aortic valve cusps without reduced excursion. No aortic valve stenosis or regurgitation. Tricuspid Valve Structurally normal tricuspid valve. No tricuspid stenosis. Trace tricuspid regurgitation. Pulmonic Valve Structurally normal pulmonic valve. No pulmonic stenosis. Trace pulmonic regurgitation. Pericardium No pericardial effusion. Aorta Normal size aortic root and proximal ascending aorta. CONCLUSIONS Impaired LV function with EF between 15 to 20% and dilated LV Moderate mitral regurgitation Aortic sclerosis with no stenosis or insufficiency The pulmonary artery systolic pressure was not calculated Previewed by: Dr. Evan Duarte MD (Electronically Signed) Final Date: 13 June 2024 07:21
--- NOTE | 2024-06-13 07:44 | XR ---
EXAMINATION TYPE: XR chest 1V portable DATE OF EXAM: 06/13/2024 5:27 AM COMPARISON: 06/12/2024 CLINICAL INDICATION: Female, 68 years old with history of CHF exacerbation, TECHNIQUE: XR chest 1V portable view(s) obtained. FINDINGS: The heart size is enlarged. The pulmonary vasculature is prominent. Mild diffuse increased lung markings are present. Correlate for volume overload. Findings are similar to comparison. Small left pleural effusion and minimal right pleural effusions are present IMPRESSION: 1. Correlate for by overlying or mild congestive heart failure. 2. Small bilateral pleural effusions [facility], , 06/13/2024 7:42 AM
[2024-06-13 08:04] LABS: ALT 398 U/L (4-34); AST 478 U/L (14-36); African American GFR (CKD) 34 (>60 ml/min/1.73 sqM); Albumin 3.2 g/dL (3.5-5.0); Alkaline Phosphatase 62 U/L (38-126); Anion Gap 14 mmol/L; Blood Urea Nitrogen 92 mg/dL (7-17); Calcium 7.8 mg/dL (8.4-10.2); Carbon Dioxide 14 mmol/L (22-30); Chloride 96 mmol/L (98-107); Glucose 176 mg/dL (74-99); Magnesium 2.3 mg/dL (1.6-2.3); Non-African American GFR(CKD) 30 (>60 ml/min/1.73 sqM); Potassium 4.9 mmol/L (3.5-5.1); Sodium 124 mmol/L (137-145); Total Bilirubin 1.5 mg/dL (0.2-1.3); Total Protein 5.4 g/dL (6.3-8.2)
[2024-06-13 08:38] LABS: NT-Pro-B-Type Natriuretic Pept 48100 pg/mL
--- NOTE | 2024-06-13 08:46 | P.PN ---
Subjective Progress Note Date: 06/13/24 PROGRESS NOTE The patient is a 68-year-old female with history of chronic tobacco use who presented with symptoms of dyspnea going on for about 3 days and was found to have ST elevation on the lateral precordial leads. She had no chest discomfort. She underwent coronary angiography and was found to have totally occluded mid LAD, severe disease in the proximal RCA with small caliber distally and signif icant disease in the proximal and mid left circumflex. She underwent attempted revascularization of the LAD with inability to restore flow. Her lab data preprocedure showed an NT proBNP of 59,800, troponin of 98,000. She had evidence of renal failure on presentation. She is complaining of persistent dyspnea and symptoms of chest discomfort with deep breathing and position. She continues to be in sinus mechanism, her blood pressure stable. She has no evidence of malignant arrhythmia. June 13: The patient is nauseated and continues to be dyspneic but has no chest discomfort. She was hypotensive yesterday requiring vasopressors. Her urinary output has dropped. She denies any dizziness or palpitations. She continues to be in sinus mechanism. Her echocardiogram was reported showing an ejection fraction of 15 to 20% with moderate mitral regurgitation. She had to be started on Levophed and vasopressin. Medications: Aspirin, clopidogrel 75 mg daily, Lasix 40 mg IV every 12 hours, IV heparin, methylprednisolone, metoprolol tartrate 12.5 mg twice a day, Atorvastatin 80 mg daily. Vasopressin, norepinephrine PHYSICAL EXAMINATION: Blood pressure 113/40 heart rate 80 LUNGS: Decreased air exchange bilaterally with scattered wheezes HEART: Regular rate and rhythm, S1, S2. No S3. No systolic murmur ABDOMEN: Soft, nontender, no organomegaly EXTREMETIES: No edema, right radial pulse intact LAB: BUN 92, creatinine 1.76, potassium 4.9, AST 478, ALT 398 NT proBNP 48,100 IMPRESSION: 1. ST segment elevation in the lateral anterior leads with totally occluded LAD. From her lab data and her anatomy it appears that the occlusion occurred about 72 hours at least prior to admission 2. Dyspnea on exertion, probably combination of CHF and COPD 3. Chronic tobacco use 4. Elevated blood sugar, probably diabetes 5. Abnormal liver function test probably liver congestion from her CHF 6. Evidence of cardiogenic shock with severe cardiomyopathy 7. Acute on chronic kidney disease PLAN: 1. Wean vasopressors as tolerated 2. Continue IV heparin for 24 hours 3. Follow renal functions closely 4. Prognosis is poor. Objective - Vital Signs Vital signs: Vital Signs Temp 97.2 F L 06/13/24 06:00 Pulse 89 06/13/24 08:37 Resp 28 H 06/13/24 08:00 BP 113/34 06/13/24 08:00 Pulse Ox 97 06/13/24 08:00 FiO2 40 06/13/24 04:00 Intake & Output 06/12/24 06/13/24 06/13/24 18:59 06:59 18:59 Intake Total 661.547 4254.140 85.823 Output Total 500 226 50 Balance -253.071 5336.140 35.823 Weight 55.2 kg Intake: IV 130 110 30 0.9 KVO 110 30 Sodium Chloride 0.9% 1, 130 000 ml @ 75 mls/hr IV . [id number] [facility] Rx#:[id number] Intake, IV Titration 135.091 710.140 55.823 Amount Heparin Sod,Pork in 0.45% 50.391 115.369 NaCl 25,000 unit In 0.45 % NaCl 1 250ml.bag @ 12 UNITS/KG/HR 5.987 mls/hr IV .Q24H [facility] Rx#: [id number] Norepinephrine 4 mg In 84.700 557.643 55.823 Sodium Chloride 0.9% 250 ml @ 0.03 MCG/KG/MIN 5. 886 mls/hr IV .Q24H [facility] Rx#:[id number] Vasopressin 20 unit In 37.128 Sodium Chloride 0.9% 50 ml @ 0.03 UNITS/MIN 4.59 mls/hr IV .Q11H7M [facility] Rx# :[id number] Oral 1070 Output: Urine 500 226 50 Other: Voiding Method External Catheter External Catheter # Voids 2 1 1 # Bowel Movements 1 - Labs CBC & Chem 7: 06/12/24 05:49 06/13/24 06:40 Labs: Abnormal Lab Results - Last 24 Hours (Table) 06/11/24 06/12/24 06/12/24 Range/Units 23:21 11:58 14:26 APTT 69.3 H (22.0-30.0) sec Sodium 130 L (137-145) mmol/L Chloride 89 L (98-107) mmol/L Carbon Dioxide (22-30) mmol/L BUN 47 H (7-17) mg/dL Creatinine 1.69 H (0.52-1.04) mg/dL Glucose 175 H (74-99) mg/dL POC Glucose (mg/dL) 173 H (70-110) mg/dL Calcium (8.4-10.2) mg/dL Total Bilirubin (0.2-1.3) mg/dL AST (14-36) U/L ALT (4-34) U/L Total Protein (6.3-8.2) g/dL Albumin (3.5-5.0) g/dL Triglycerides 195.00 H (0.00-149.00) mg/dL Cholesterol 237.00 H (0.00-200.00) mg/dL LDL Cholesterol, Calc 138.4 H (0.0-131.0) mg/dL 06/12/24 06/12/24 06/13/24 Range/Units 16:52 19:58 06:10 APTT (22.0-30.0) sec Sodium (137-145) mmol/L Chloride (98-107) mmol/L Carbon Dioxide (22-30) mmol/L BUN (7-17) mg/dL Creatinine (0.52-1.04) mg/dL Glucose (74-99) mg/dL POC Glucose (mg/dL) 192 H 184 H 206 H (70-110) mg/dL Calcium (8.4-10.2) mg/dL Total Bilirubin (0.2-1.3) mg/dL AST (14-36) U/L ALT (4-34) U/L Total Protein (6.3-8.2) g/dL Albumin (3.5-5.0) g/dL Triglycerides (0.00-149.00) mg/dL Cholesterol (0.00-200.00) mg/dL LDL Cholesterol, Calc (0.0-131.0) mg/dL 06/13/24 06/13/24 Range/Units 06:40 06:40 APTT 67.6 H (22.0-30.0) sec Sodium 124 L (137-145) mmol/L Chloride 96 L (98-107) mmol/L Carbon Dioxide 14 L (22-30) mmol/L BUN 92 H (7-17) mg/dL Creatinine 1.76 H (0.52-1.04) mg/dL Glucose 176 H (74-99) mg/dL POC Glucose (mg/dL) (70-110) mg/dL Calcium 7.8 L (8.4-10.2) mg/dL Total Bilirubin 1.5 H (0.2-1.3) mg/dL AST 478 H (14-36) U/L ALT 398 H (4-34) U/L Total Protein 5.4 L (6.3-8.2) g/dL Albumin 3.2 L (3.5-5.0) g/dL Triglycerides (0.00-149.00) mg/dL Cholesterol (0.00-200.00) mg/dL LDL Cholesterol, Calc (0.0-131.0) mg/dL
[2024-06-13] MEDS: METOPROLOL TARTRATE 12.5 MG TAB PO SCH (09:00)
[2024-06-13 09:18] LABS: Basophils % (A) 0 %; Eosinophils % (A) 0 %; HCT 35.9 % (34.0-46.0); HGB 12.1 gm/dL (11.4-16.0); Lymphocytes # (A) 1.1 k/uL (1.0-4.8); Lymphocytes % (A) 7 %; MCH 31.4 pg (25.0-35.0); MCHC 33.5 g/dL (31.0-37.0); MCV 93.6 fL (80.0-100.0); Mean Platelet Volume 8.7; Monocytes # (A) 0.9 k/uL (0-1.0); Monocytes % (A) 6 %; Neutrophils # (A) 12.3 k/uL (1.3-7.7); Neutrophils % (A) 85 %; Platelet Count 148 k/uL (150-450); RBC 3.84 m/uL (3.80-5.40); RDW 13.1 % (11.5-15.5); WBC 14.5 k/uL (3.8-10.6)
[2024-06-13 11:30] LABS: Glucose,Whole Blood 180 mg/dL (70-110)
[2024-06-13] MEDS: DOBUTamine DRIP 500 MG in DEXTROSE/WATER 1 250ML.BAG IV SCH (12:07)
--- NOTE | 2024-06-13 14:59 | P.PN ---
Subjective Progress Note Date: 06/13/24 Hospital Course: 68-year-old female with past medical history of COPD, tobacco use disorder, RA, who presented for progressively worsening SOB. EKG in the ER showed sinus rhythm with ST elevation with V3-V6. She was taken to the [facility] that showed total occlusion of the mid LAD, severe stenosis of mid left circumflex, proximal,, subtotal occlusion of the proximal RCA, diffuse intimal disease in the distal vessel, inability to restore flow into the LAD representing more chronic occlusion. Patient was transferred to ICU, continued on aspirin, Plavix, started on beta-roney, statin, smoking cessation was discussed. She was continued on IV heparin, IV Lasix, nitrates, IV steroids. Viral screen was negative. TTE done, pending final read. 06/12 she complains of ongoing shortness of breath, episodic chest pain. She is hemodynamically stable, heart rate goes in 100s at times. She is on 4 L of nasal cannula. Chest x-ray showed bibasilar infiltrates, small pleural effusions, pulmonary vascular congestion. 06/12 overnight patient became hypotensive, started on Levophed and vasopressin infusion, 06/13 a.m. vasopressin was weaned off, levo at 0.11, started on dobutamine 2.5. Cardiology recommended transfer to [facility], spoke with Addy GARCIA, patient was accepted by . Wait list 10 patients. Patient needs to bring CD with PCI with her. Pertinent positives and negatives as discussed above, a complete review of systems was performed and all other systems are negative. Vitals Signs Reviewed. General: [nontoxic], [ill-appearing, [appears at stated age] Derm: [warm], [dry] Head: [atraumatic], [normocephalic], [symmetric] Eyes: [EOMI], [no lid lag], [anicteric sclera] Mouth: [no lip lesion], [mucus membranes moist] Cardiovascular: [S1S2 reg], [no murmur] Lungs: Diminished bibasilar breath sounds, a few wheezes at the end of expiration,], [no rhonchi, no rales] , [in respiratory distress, Abdominal: [soft], [ nontender to palpation], [no guarding], [no appreciable organomegaly] Ext: [no gross muscle atrophy], [no edema], [no contractures] Neuro: [ CN II-XI grossly intact], [no focal neuro deficits] Psych: [Alert], [oriented], [appropriate affect] Data Reviewed Today: Pertinent Labs: CBC showed WBC of 14.5, normal and stable hemoglobin, platelet count 148, sodium 124, bicarb 14, creatinine 1.76, blood glucose 176, AST ALT 478 and 398 accordingly, proBNP 48,100 Assessment and Plan: STEMI status post 06/11 showing totally occluded mid LAD, unable to stent Cardiogenic shock Acute hypoxic respiratory failure secondary to acute pulmonary edema, acute heart failure with severely reduced ejection fraction 15 to 20% acute elevation of liver enzymes secondary to hepatic congestion Leukocytosis, likely reactive COPD not on home oxygen -Cardiology, pulmonology following -Continue levo, started on dobutamine, wean off as tolerated -Continue IV heparin -Continue IV Lasix 40 twice daily -Lopressor increased to 25 twice daily -Continue as needed nitroglycerin and Nitropaste -Continue dual antiplatelet with aspirin 81 and clopidogrel 51 daily -Continue high intensity statin 80 mg daily -Continue Symbicort 2 puffs twice daily, continue DuoNeb 4 times daily -Continue Solu-Medrol 40 mg twice daily IV -Continue Protonix 40 daily oral -Monitor CBC and CMP -Accepted to [facility], pending bed availability ZEB, likely cardiorenal Metabolic acidosis Hyperkalemia, resolved -monito BMP, continue lasix, Cr improving, strict I&O -Check lactate Prediabetes -Accu-Cheks, SSI Hyperlipidemia: Continue atorvastatin 80 Tobacco dependence: Smoking cessation discussed DVT ppx: Heparin drip Code status: Full code Anticipated discharge place: [facility] Anticipated discharge time: Pending ICU bed availability Objective - Vital Signs Vital signs: Vital Signs Temp 98.4 F 06/13/24 12:00 Pulse 93 06/13/24 14:00 Resp 22 06/13/24 14:00 BP 108/68 06/13/24 14:00 Pulse Ox 99 06/13/24 14:00 FiO2 2 06/13/24 11:00 Intake & Output 06/12/24 06/13/24 06/13/24 18:59 06:59 18:59 Intake Total 251.049 3392.140 548.117 Output Total 500 226 650 Balance -750.405 4889.140 -101.883 Weight 55.2 kg Intake: IV 130 110 150 0.9 KVO 110 150 Sodium Chloride 0.9% 1, 130 000 ml @ 75 mls/hr IV . [id number] LJ Rx#:[id number] Intake, IV Titration 135.091 710.140 248.117 Amount Heparin Sod,Pork in 0.45% 50.391 115.369 NaCl 25,000 unit In 0.45 % NaCl 1 250ml.bag @ 12 UNITS/KG/HR 5.987 mls/hr IV .Q24H LJ Rx#: [id number] Norepinephrine 4 mg In 84.700 557.643 220.220 Sodium Chloride 0.9% 250 ml @ 0.03 MCG/KG/MIN 5. 886 mls/hr IV .Q24H LJ Rx#:[id number] Vasopressin 20 unit In 37.128 27.897 Sodium Chloride 0.9% 50 ml @ 0.03 UNITS/MIN 4.59 mls/hr IV .Q11H7M LJ Rx# :[id number] Oral 1070 150 Output: Urine 500 226 650 Other: Voiding Method External Catheter External Catheter Indwelling Catheter # Voids 2 1 1 # Bowel Movements 1 - Labs CBC & Chem 7: 06/13/24 08:50 06/13/24 06:40 Labs: Abnormal Lab Results - Last 24 Hours (Table) 06/12/24 06/12/24 06/13/24 Range/Units 16:52 19:58 06:10 WBC (3.8-10.6) k/uL Plt Count (150-450) k/uL Neutrophils # (1.3-7.7) k/uL APTT (22.0-30.0) sec Sodium (137-145) mmol/L Chloride (98-107) mmol/L Carbon Dioxide (22-30) mmol/L BUN (7-17) mg/dL Creatinine (0.52-1.04) mg/dL Glucose (74-99) mg/dL POC Glucose (mg/dL) 192 H 184 H 206 H (70-110) mg/dL Calcium (8.4-10.2) mg/dL Total Bilirubin (0.2-1.3) mg/dL AST (14-36) U/L ALT (4-34) U/L Total Protein (6.3-8.2) g/dL Albumin (3.5-5.0) g/dL 06/13/24 06/13/24 06/13/24 Range/Units 06:40 06:40 08:50 WBC 14.5 H (3.8-10.6) k/uL Plt Count 148 L (150-450) k/uL Neutrophils # 12.3 H (1.3-7.7) k/uL APTT 67.6 H (22.0-30.0) sec Sodium 124 L (137-145) mmol/L Chloride 96 L (98-107) mmol/L Carbon Dioxide 14 L (22-30) mmol/L BUN 92 H (7-17) mg/dL Creatinine 1.76 H (0.52-1.04) mg/dL Glucose 176 H (74-99) mg/dL POC Glucose (mg/dL) (70-110) mg/dL Calcium 7.8 L (8.4-10.2) mg/dL Total Bilirubin 1.5 H (0.2-1.3) mg/dL AST 478 H (14-36) U/L ALT 398 H (4-34) U/L Total Protein 5.4 L (6.3-8.2) g/dL Albumin 3.2 L (3.5-5.0) g/dL 06/13/24 Range/Units 11:28 WBC (3.8-10.6) k/uL Plt Count (150-450) k/uL Neutrophils # (1.3-7.7) k/uL APTT (22.0-30.0) sec Sodium (137-145) mmol/L Chloride (98-107) mmol/L Carbon Dioxide (22-30) mmol/L BUN (7-17) mg/dL Creatinine (0.52-1.04) mg/dL Glucose (74-99) mg/dL POC Glucose (mg/dL) 180 H (70-110) mg/dL Calcium (8.4-10.2) mg/dL Total Bilirubin (0.2-1.3) mg/dL AST (14-36) U/L ALT (4-34) U/L Total Protein (6.3-8.2) g/dL Albumin (3.5-5.0) g/dL
[2024-06-13 15:58] LABS: Glucose,Whole Blood 158 mg/dL (70-110)
--- NOTE | 2024-06-13 16:20 | P.PN ---
Subjective Progress Note Date: 06/13/24 Patient is 68-year-old female with past medical history significant for COPD and chronic ongoing tobacco dependence. Presented to the emergency department yesterday evening with a chief complaint of progressively worsening shortness of breath over the last 24-48 hours. Worsening overnight. Denies any overt chest pain. Denies any lower extremity edema. Associated nausea without emesis. No diaphoresis. EKG showing ST segment elevations in anterior leads. Patient was taken to the catheterization lab which noted a totally occluded mid LAD, severe stenosis of the left circumflex, and subtotal occlusion of the proximal RCA. Interventional cardiology unable to restore patency to the LAD. Following the heart catheterization, patient was sent to the intensive care unit. Continues to report severe ongoing shortness of breath. Chest x-ray from last night showing cardiomegaly, pulmonary vascular congestion, and small bilateral pleural effusions. Hyperinflation consistent with COPD. CBC: WBC count 14.7, hemoglobin 16.3, platelets 192. CMP: Sodium 130, potassium 4.7, chloride 89, serum bicarb 25, BUN 47, creatinine 1.69, glucose 175. NT proBNP 59,800. Troponin is peaked at 98. Viral screen unremarkable for influenza, RSV, COVID. Patient currently being evaluated in the ICU. Continues on IV heparin infusion per protocol. Normal sinus infusing at 75 mL/h. Patient denies any chest pain. Continues to report ongoing shortness of breath. A pulmonary consult was placed for COPD exacerbation. She is sitting erect in bed. On 4 L/min nasal cannula. SpO2 reading 97%. She is tachypneic. Does reportedly have history of COPD. Smokes 1 pack/day. Denies infectious-like symptoms. Denies coughing, sputum production, fever/chills. Did have few episodes of self-limiting loose stools outpatient. No her dyspnea more likely related to her pulmonary edema and ST segment elevation KS. She has been started on Lasix 40 mg twice daily. Also, started on dual antiplatelet medications including aspirin and Plavix. Started on a low-dose beta-roney and high intensity statin. Most recent vital signs afebrile, heart rate 102 bpm, blood pressure 123/67 mmHg, respiratory rate in t he mid 20s, SpO2 97% on 4 L/min nasal cannula. This morning, the patient continues to have episodes of chest pain. Cardiology is aware. She is producing adequate amount of urine output. No significant respiratory distress. She is a chronic smoker. Hemodynamically stable. Echocardiogram is being completed this morning. Microbial Specialist on the case. On 06/13/2024, the patient is being seen for a follow-up. The patient remains on 2 L of oxygen by nasal cannula. The patient remains in cardiogenic shock. Chest x-ray shows mild pulm vascular congestion. Urine output was quite diminished. At the same time, the patient is hemodynamically unstable and hypotensive currently on a combination of norepinephrine which is running at 0.18 mcg/kg/min and vasopressin at 0.03 units. Remains on IV Lasix 40 mg every 12 hours. Echocardiogram was noted and the patient has severe impairment of the LV function. The patient ejection fraction was estimated to be at 15 to 20% and the patient has moderate mitral regurgitation, no aortic stenosis. Had a lengthy discussion with the rug cleaning supervisor. According to him, her coronary arteries are quite complex and extensively involved with atherosclerosis. He may not be able to do any further intervention. He is considering transferring this patient to [facility] for a second opinion and is working on the transfer. Meanwhile, the patient remains on IV heparin. The patient remains on a combination of aspirin and Plavix. In regards to her COPD, she is on DuoNeb updrafts, Symbicort and IV Solu-Medrol. The white cell count is 14.5, hemoglobin 12.1 and a platelet count of 148. Sodium levels at 124, potassium level is at 4.9, bicarb is at 14 with a BUN of 92 and a creatinine of 1.76. LFTs are mildly elevated with an AST of 478 and ALT of 398. proBNP level is 48,100. Albumin level is at 3.2. Blood sugars at 180. Venous lactic acid level is at 1.9. Awake and alert and communicating and she is complaining of shortness of breath even at rest. Positive JVD on examination. Objective - Vital Signs Vital signs: Vital Signs Temp 97.2 F L 06/13/24 06:00 Pulse 92 06/13/24 09:30 Resp 22 06/13/24 09:30 BP 99/72 06/13/24 09:30 Pulse Ox 94 L 06/13/24 09:30 FiO2 40 06/13/24 04:00 Intake & Output 06/12/24 06/13/24 06/13/24 18:59 06:59 18:59 Intake Total 707.680 5880.140 345.259 Output Total 500 226 150 Balance -906.908 4548.140 195.259 Weight 55.2 kg Intake: IV 130 110 50 0.9 KVO 110 50 Sodium Chloride 0.9% 1, 130 000 ml @ 75 mls/hr IV . [id number] LJ Rx#:[id number] Intake, IV Titration 135.091 710.140 145.259 Amount Heparin Sod,Pork in 0.45% 50.391 115.369 NaCl 25,000 unit In 0.45 % NaCl 1 250ml.bag @ 12 UNITS/KG/HR 5.987 mls/hr IV .Q24H LJ Rx#: [id number] Norepinephrine 4 mg In 84.700 557.643 119.657 Sodium Chloride 0.9% 250 ml @ 0.03 MCG/KG/MIN 5. 886 mls/hr IV .Q24H LJ Rx#:[id number] Vasopressin 20 unit In 37.128 25.602 Sodium Chloride 0.9% 50 ml @ 0.03 UNITS/MIN 4.59 mls/hr IV .Q11H7M LJ Rx# :[id number] Oral 1070 150 Output: Urine 500 226 150 Other: Voiding Method External Catheter External Catheter # Voids 2 1 1 # Bowel Movements 1 - Exam GENERAL EXAM: Alert, 68-year-old white female, sitting erect in bed, on 2 positive JVD is bilaterally L/min nasal cannula, and a mild amount of respiratory distress HEAD: Normocephalic and atraumatic EYES: Normal reaction of pupils, equal size. NOSE: Clear with pink turbinates. THROAT: No erythema or exudates. NECK: No masses, no JVD. CHEST: No chest wall deformity. LUNGS: Equal air entry with diminished bilateral lung sounds. Faint scattered expiratory wheezes. Mild dyspnea at rest CVS: S1 and S2 distant with no audible murmur, regular rhythm. No extra heart sounds ABDOMEN: No hepatosplenomegaly, active bowel sounds, no guarding or rigidity. SPINE: No scoliosis or deformity SKIN: No rashes CENTRAL NERVOUS SYSTEM: No focal deficits, tone is normal in all 4 extremities. EXTREMITIES: There is no peripheral edema, clubbing, or cyanosis. Peripheral pulses are intact. - Labs CBC & Chem 7: 06/13/24 08:50 06/13/24 06:40 Labs: Abnormal Lab Results - Last 24 Hours (Table) 06/12/24 06/12/24 06/12/24 Range/Units 11:58 14:26 16:52 WBC (3.8-10.6) k/uL Plt Count (150-450) k/uL Neutrophils # (1.3-7.7) k/uL APTT 69.3 H (22.0-30.0) sec Sodium (137-145) mmol/L Chloride (98-107) mmol/L Carbon Dioxide (22-30) mmol/L BUN (7-17) mg/dL Creatinine (0.52-1.04) mg/dL Glucose (74-99) mg/dL POC Glucose (mg/dL) 173 H 192 H (70-110) mg/dL Calcium (8.4-10.2) mg/dL Total Bilirubin (0.2-1.3) mg/dL AST (14-36) U/L ALT (4-34) U/L Total Protein (6.3-8.2) g/dL Albumin (3.5-5.0) g/dL 06/12/24 06/13/24 06/13/24 Range/Units 19:58 06:10 06:40 WBC (3.8-10.6) k/uL Plt Count (150-450) k/uL Neutrophils # (1.3-7.7) k/uL APTT (22.0-30.0) sec Sodium 124 L (137-145) mmol/L Chloride 96 L (98-107) mmol/L Carbon Dioxide 14 L (22-30) mmol/L BUN 92 H (7-17) mg/dL Creatinine 1.76 H (0.52-1.04) mg/dL Glucose 176 H (74-99) mg/dL POC Glucose (mg/dL) 184 H 206 H (70-110) mg/dL Calcium 7.8 L (8.4-10.2) mg/dL Total Bilirubin 1.5 H (0.2-1.3) mg/dL AST 478 H (14-36) U/L ALT 398 H (4-34) U/L Total Protein 5.4 L (6.3-8.2) g/dL Albumin 3.2 L (3.5-5.0) g/dL 06/13/24 06/13/24 Range/Units 06:40 08:50 WBC 14.5 H (3.8-10.6) k/uL Plt Count 148 L (150-450) k/uL Neutrophils # 12.3 H (1.3-7.7) k/uL APTT 67.6 H (22.0-30.0) sec Sodium (137-145) mmol/L Chloride (98-107) mmol/L Carbon Dioxide (22-30) mmol/L BUN (7-17) mg/dL Creatinine (0.52-1.04) mg/dL Glucose (74-99) mg/dL POC Glucose (mg/dL) (70-110) mg/dL Calcium (8.4-10.2) mg/dL Total Bilirubin (0.2-1.3) mg/dL AST (14-36) U/L ALT (4-34) U/L Total Protein (6.3-8.2) g/dL Albumin (3.5-5.0) g/dL Assessment and Plan Plan: Acute ST segment elevation KS, heart catheterization noted a totally occluded mid LAD, severe stenosis of the left circumflex, and subtotal occlusion of the proximal RCA. Interventional cardiology unable to restore patency to the LAD. The patient continues to have episodes of chest pain. The patient is on nitrate and IV heparin. No significant cardiac arrhythmias. Cardiogenic shock, currently on norepinephrine and vasopressin. Chest x-ray shows bilateral pulm vascular congestion and the patient has developed low urine output and shock liver. Acute pulmonary edema, improving and the patient is currently on IV Lasix, urine output is quite diminished Acute kidney injury, related to cardiorenal factors Acute shock liver Metabolic acidosis, With a low lactic acid level. This is essentially a mild metabolic acidosis secondary to acute kidney injury. Advanced COPD, utilizing albuterol rescue inhaler on as-needed basis on an outpatient basis. No maintenance respiratory medications. No evidence of any pneumonia. She is a chronic smoker. The patient remains on bronchodilators, Symbicort and IV Solu-Medrol. Acute hypoxemic respiratory failure, currently on 2 L/min nasal cannula, chest x-ray showing cardiomegaly, pulmonary vascular congestion, and small bilateral pleural effusions. Hyperinflation consistent with COPD. Prediabetes Multivessel coronary artery disease as described above Chronic ongoing tobacco dependence, reportedly 1 pack/day smoker History of rheumatoid arthritis Plan: Patient will be kept in the intensive care unit Microbial Specialist on the case, no interventions are recommended at this point in time. Patient is being considered to be transferred for second opinion at [facility]. Transfer may take place either today or within the next 24 hours. Continue supplemental oxygen to maintain oxygen saturation of 92% or greater, currently on 2 L Continues on IV heparin per cardiology Continue nitrates Continue IV Lasix and monitor urine output and the patient remains on Lasix 40 mg IV every 12 hours Monitor renal function Echocardiogram was noted Continues on dual antiplatelet medications including Plavix and aspirin, as well as low-dose beta-roney and high intensity statin Continues on bronchodilators, Symbicort inhaler, and IV Solu-Medrol Viral screen negative for influenza A/B, RSV, COVID Condition is critical and the patient will be kept in the intensive care unit. Pending further recommendations from cardiology regarding her multivessel coronary artery disease. The tentative plan is to transfer this patient to a tertiary care center for now. Evaluation was done and 35 minutes. Time with Patient: Greater than 30
[2024-06-13 20:18] VITALS: TEMP 97.6
[2024-06-13 20:21] LABS: Glucose,Whole Blood 167 mg/dL (70-110)
[2024-06-13 21:02] VITALS: BP 112/65; PULSE 99; RESP 20
--- NOTE | 2024-06-14 07:48 | P.DS ---
Providers Date of admission: 06/11/24 18:55 Attending physician: Darien Azul Consults: 06/11/24 18:55 Consult Physician Stat Consulting Provider: Higinio Martinez Consult Reason/Comments: Acute STEMI Do you want consulting provider notified?: Already Contacted 06/11/24 19:31 Consult Physician Routine Consulting Provider: Olivia Calhoun Consult Reason/Comments: copd Do you want consulting provider notified?: Yes 06/13/24 13:55 Consult Physician Stat Consulting Provider: Holly Sosa Consult Reason/Comments: gfr 30 and need for picc line Do you want consulting provider notified?: Yes Primary care physician: Stated None Hospital Course: Discharge Diagnosis: STEMI status post 06/11 showing totally occluded mid LAD, unable to stent Cardiogenic shock Acute hypoxic respiratory failure secondary to acute pulmonary edema, acute heart failure with severely reduced ejection fraction 15 to 20% acute elevation of liver enzymes secondary to hepatic congestion Leukocytosis, likely reactive COPD not on home oxygen ZEB, likely cardiorenal Metabolic acidosis Hyperkalemia, resolved Prediabetes Hyperlipidemia Tobacco dependence Hospital Course: 68-year-old female with past medical history of COPD, tobacco use disorder, RA, who presented for progressively worsening SOB. EKG in the ER showed sinus rhythm with ST elevation with V3-V6. She was taken to the [facility] that showed total occlusion of the mid LAD, severe stenosis of mid left circumflex, proximal,, subtotal occlusion of the proximal RCA, diffuse intimal disease in the distal vessel, inability to restore flow into the LAD representing more chronic occlusion. Patient was transferred to ICU, continued on aspirin, Plavix, started on beta-roney, statin, smoking cessation was discussed. She was continued on IV heparin, IV Lasix, nitrates, IV steroids. Viral screen was negative. TTE done, pending final read. 06/12 she complains of ongoing shortness of breath, episodic chest pain. She is hemodynamically stable, heart rate goes in 100s at times. She is on 4 L of nasal cannula. Chest x-ray showed bibasilar infiltrates, small pleural effusions, pulmonary vascular congestion. 06/12 overnight patient became hypotensive, started on Levophed and vasopressin infusion, 06/13 a.m. vasopressin was weaned off, levo at 0.11, started on dobutamine 2.5. Cardiology recommended transfer to [facility], spoke with Addy GARCIA, patient was accepted by . Wait list 10 patients. Patient needs to bring CD with PCI with her. Patient was transferred on 06/13 around 9 PM Please see physical exam from progress note earlier 06/13 A total of 40 minutes of time were spent preparing this complex discharge summary. Patient was discharged on 06/13. Patient Condition at Discharge: Critical Plan - Discharge Summary Discharge Rx Participant: Yes New Discharge Prescriptions: No Action Etodolac [Lodine] 400 mg PO BID PRN PRN Reason: Pain Albuterol Nebulized [Ventolin Nebulized] 2.5 mg INHALATION RT-QID PRN PRN Reason: Shortness Of Breath Discharge Medication List Etodolac [Lodine] 400 mg PO BID PRN 07/09/17 [History] Albuterol Nebulized [Ventolin Nebulized] 2.5 mg INHALATION RT-QID PRN 06/11/24 [History] Follow up Appointment(s)/Referral(s): None,Stated [Primary Care Provider] - 1-2 days Discharge Disposition: TRANSFER TO [facility]
== END 2024-06-13 22:03 | disposition short-term general hospital (02) | DRG 250 ==
LOC: EC 18:34 → 2SICU 18:55
PROVIDERS: ADMIT Student in an Organized Health Care Education/Training Program; ATTEND Student in an Organized Health Care Education/Training Program
PROC: B2111ZZ Fluoroscopy of Multiple Coronary Arteries using Low Osmolar Contrast (ICD-10-PCS; principal; 2024-06-11 19:08)
PROC: 02703ZZ Dilation of Coronary Artery, One Artery, Percutaneous Approach (ICD-10-PCS; principal; 2024-06-11 19:08)
PROC: 4A023N7 Measurement of Cardiac Sampling and Pressure, Left Heart, Percutaneous Approach (ICD-10-PCS; principal; 2024-06-11 19:08)
PROC: 05HY33Z Insertion of Infusion Device into Upper Vein, Percutaneous Approach (ICD-10-PCS; 2024-06-12)
PROC: 3E033XZ Introduction of Vasopressor into Peripheral Vein, Percutaneous Approach (ICD-10-PCS; 2024-06-13)
DX: I21.02 ST elevation (STEMI) myocardial infarction involving left anterior descending coronary artery (principal); I50.21 Acute systolic (congestive) heart failure; R57.0 Cardiogenic shock; J96.21 Acute and chronic respiratory failure with hypoxia; E87.20 Acidosis, unspecified; K76.1 Chronic passive congestion of liver; J44.1 Chronic obstructive pulmonary disease with (acute) exacerbation; M06.9 Rheumatoid arthritis, unspecified; E11.65 Type 2 diabetes mellitus with hyperglycemia; N18.9 Chronic kidney disease, unspecified; I34.0 Nonrheumatic mitral (valve) insufficiency; I42.9 Cardiomyopathy, unspecified; N17.9 Acute kidney failure, unspecified; E11.22 Type 2 diabetes mellitus with diabetic chronic kidney disease; R74.01 Elevation of levels of liver transaminase levels; E83.42 Hypomagnesemia; D72.829 Elevated white blood cell count, unspecified; R19.7 Diarrhea, unspecified; E78.5 Hyperlipidemia, unspecified; M19.90 Unspecified osteoarthritis, unspecified site; I25.10 Atherosclerotic heart disease of native coronary artery without angina pectoris; F17.210 Nicotine dependence, cigarettes, uncomplicated; E87.5 Hyperkalemia; Z79.51 Long term (current) use of inhaled steroids; Z91.041 Radiographic dye allergy status; Z88.0 Allergy status to penicillin; Z88.5 Allergy status to narcotic agent
CPT/HCPCS: 36415; 71045; 80048; 80053; 80061; 83036; 83605; 83735; 83880; 84484; 85025; 85379; 85610; 85730; 87636; 92920; 93005; 93306; 93458; 94640; 96374; 96375; 99291